=== PATIENT | male | born 1990 | race Caucasian/White ===

== ENCOUNTER 2024-09-19 08:56 | Emergency (ER) | payer OTHER, SELFPAY ==
[2024-09-19 08:59] VITALS: BP 148/87; PULSE 86; RESP 20; TEMP 36.8; O2SAT 98; BMI 47.8
[2024-09-19 09:04] VITALS: BP 148/86; PULSE 85; O2SAT 98
--- NOTE | 2024-09-19 09:23 | ECG_ITS ---
APPROVED REPORT Exam: Resting ECG HR:74 bpm ECG Measurements Heart Rate 74 AXES OR 161 P 39 QRSd 99 QRS 24 QT 414 T 24 QTc 441 Conclusion SINUS RHYTHM NORMAL ECG Electronically signed by : BENJAMIN CASTILLO, 09/19/2024 16:08:05
[2024-09-19 09:33] VITALS: BP 153/94; PULSE 88; O2SAT 99
--- NOTE | 2024-09-19 09:36 | ED_ITS ---
Discharge Plan Disposition Patient Disposition: Home, Self-Care Condition: Good Prescriptions Prescriptions: New ondansetron 4 mg tablet,disintegrating 4 mg PO Q8H PRN (Reason: nausea and vomiting) 4 Days Qty: 12 0RF Referrals Follow up/Referrals: Provider,Referral, [Primary Care Provider] - See instructions Activity Restrictions/Add. Instructions Additional Instructions/Restrictions: You were evaluated in the emergency department today. You were found to have a mass or fluid collection on your right flank, which radiology believes is likely a hematoma. Follow-up with your primary care provider very closely to make sure that this resolves. Please take Tylenol and ibuprofen at home as needed for pain. Avoid using Tylenol while drinking alcohol, as both can be very hard on your liver. Clinical Impressions Clinical Impression: Nausea & vomiting, Alcohol abuse, Hematoma of right flank Stand Alone Forms Stand Alone Forms: Work/School Release Instructions Patient Instructions: DI for Nausea -- Adult Print Language Print Language: Icelandic Discharge ED Provider: Polina Mosqueda General Adult HPI General Chief complaint: Nausea/Vomiting/Diarrhea Stated complaint: nausea, dizziness, dehydrated, Time Seen by Provider: 09/19/24 09:08 Mode of Arrival: Family Vehicle Source of Information: Patient and Significant Other Limitations: No Limitations Description of Symptoms (Recalled from ER Triage Doc. by RN): Pt c/o nausea, vomiting, dizziness, chest pressure, and R back pain after drinking too much last night. States he typically drinking 1 pint- a fifth of bourbon daily. He states is trying to cut back. Denies any abd pain. He had gastric sleeve last yr and takes protonix daily. States his symptoms began at 8am today. Denies any black or red emesis or stool. History of Present Illness HPI narrative: This patient is a 33-year-old male with a history of daily alcohol abuse, prior cholecystectomy, history of gastric sleeve surgery, and history of hypertension and GERD presenting to the emergency department for evaluation with concern for nausea, vomiting, lightheadedness, chest pressure, right-sided back pain. He states that he thinks he might of drank too much last night. He states that he typically drinks a pint to 1/5 of bourbon daily but is been trying to cut back. He states that he drank more than usual last night, but was fine when he woke up around 630 this morning. Suddenly, he started vomiting around 8 AM and feels like he is dehydrated. He notes has been having right sided back pain for a few days. He also has been having trouble having bowel movements and has had darker urine than normal. No fevers, chills, or other concerns noted. No hematemesis, melena, hematochezia. He reports compliance with his blood pressure and GERD medications. Related Data Previous Rx's ?Medication ?Instructions ?Recorded ondansetron 4 mg disintegrating 4 mg PO Q8H PRN nausea and 09/19/24 tablet vomiting 4 days #12 tabs Allergies Allergy/AdvReac Type Severity Reaction Status Date / Time vancomycin Allergy Intermediate itching & Verified 09/19/24 09:34 face edema [facility] Disclaimer: The information contained in this section may have been updated after the patient was seen, as this information can be updated by other users. Medical History Hypertension Surgical History H/O gastric sleeve Hx of cholecystectomy Social History Smoking Status: Current every day smoker alcohol intake: never current occupational status: employed Travel in the last 8 weeks: None ROS Obtained: Yes All systems reviewed & no additional complaints except as documented Physical Exam General General appearance: alert, in no apparent distress and obese Head Head exam: atraumatic and normocephalic Eye Eye exam: Present normal appearance, PERRL and EOMI ENT ENT exam: Present normal exam, normal oropharynx, mucous membranes moist and normal external ear exam Neck Neck exam: Present normal inspection, full ROM and trachea midline; Absent tenderness Chest Chest inspection: Present normal inspection and symmetric chest wall rise; Absent tenderness Respiratory Respiratory exam: Present normal lung sounds bilaterally; Absent respiratory distress, wheezes, stridor or accessory muscle use Cardiovascular Cardiovascular exam: Present regular rate and normal rhythm Abdominal Exam Abdominal exam: Present soft; Absent distention, tenderness or guarding Extremities Exam Extremities exam: Present normal inspection, full ROM and normal capillary refill; Absent tenderness or edema Back Exam Back exam: Present full ROM and CVA tenderness (R) Neurological Exam Neurological exam: Present alert, oriented X3, CN II-XII intact and normal gait; Absent motor sensory deficit Psychiatric Psychiatric exam: Present normal affect and normal mood Skin Skin exam: Present warm and dry Medical Decision Making Medical Records Medical records reviewed: Yes I reviewed the patient's medical records. Screening: Per USPSTF and CDC recommendations, given the prevalence of disease in our region, it is our hospital?s policy to screen for HIV and viral Hepatitis for all patients aged 18 and over and those with ongoing risk factors. [place] Inquiry Pt receiving controlled substance: No Vital Signs: 09/19/24 08:59 09/19/24 09:04 09/19/24 09:33 Temperature 98.3 F Temperature Source Oral Pulse Rate 85 88 Pulse Rate [Right] 86 Respiratory Rate 20 Blood Pressure 148/86 H 153/94 H Blood Pressure [Right Arm] 148/87 H Blood Pressure Mean Blood Pressure Mean [Right Arm] 107 Blood Pressure Source Blood Pressure Source [Right Arm] Automatic Cuff Blood Pressure Position 02 Sat by Pulse Oximetry 98 98 99 Oxygen Delivery Method Room Air Room Air Room Air 09/19/24 11:28 09/19/24 11:30 09/19/24 11:44 Temperature 98.3 F Temperature Source Oral Pulse Rate 84 Pulse Rate [Right] Respiratory Rate 18 Blood Pressure 157/95 H 160/89 H 160/89 H Blood Pressure [Right Arm] Blood Pressure Mean 106 101 Blood Pressure Mean [Right Arm] Blood Pressure Source Automatic Cuff Blood Pressure Source [Right Arm] Blood Pressure Position Sitting 02 Sat by Pulse Oximetry Oxygen Delivery Method Room Air Lab Data Lab results reviewed: Yes I reviewed the patient's lab results. Lab Results 09/19/24 09:10: WBC 4.3 L, RBC 4.87, Hgb 17.3, Hct 49.5, MCV 101.7 H, MCH 35.5 H , MCHC 34.9, RDW 14.9, Plt Count 250, MPV 7.4, Neut % (Auto) 56.8, Lymph % (Auto) 31.8, [place] % (Auto) 6.7, Eos % (Auto) 3.0, Baso % (Auto) 1.7, Neut # (Auto) 2.4, Lymph # (Auto) 1.4, [place] # (Auto) 0.3, Eos # (Auto) 0.1, Baso # (Auto) 0.1, PT 10.8, INR 0.96, APTT 27.2, Sodium 138, Potassium 3.8, Chloride 102, Carbon Dioxide 30, Anion Gap 9.8, BUN 7 L, Creatinine 0.80, Estimated Creat Clear 142, Estimated GFR 113, Est GFR ( Amer) 136, Glucose 82, Lactate 3.2 H, Calcium 8.9, Phosphorus 2.4 L, Magnesium 1.6, Total Bilirubin 1.0, AST 105 H, ALT 81 H, Alkaline Phosphatase 96, Troponin I < 0.01, Total Protein 6.7, Albumin 4.1, Globulin 2.6, Albumin/Globulin Ratio 1.6, Lipase 45, Plasma/Serum Alcohol 119 H 09/19/24 09:40: Urine Color Yellow, Urine Appearance Clear, Urine pH 6.0, Ur Specific [place] >= 1.030, Urine Protein Negative, Urine Glucose (UA) Negative, Urine Ketones 1+, Urine Blood Negative, Urine Nitrate Negative, Urine Bilirubin 2+ A, Urine Urobilinogen 1.0, Ur Leukocyte Esterase Negative, Urine RBC None, Urine WBC None, Ur Squamous Epith Cells Occasional, Urine Bacteria None 09/19/24 10:10: SARS-CoV-2 (PCR) Not detected, Influenza A Untype (PCR) Not detected, Influenza Type B (PCR) Not detected 09/19/24 09:10 09/19/24 09:10 Orders (Tests/Meds): ED MEDICATIONS Discontinued Medications Generic Name Dose Route Start Last Admin Trade Name Freq PRN Reason Stop Dose Admin Famotidine 20 mg 09/19/24 09:31 09/19/24 09:51 Famotidine 20mg/2ml Vial IV 09/19/24 09:32 20 mg ONCE ONE Administration Folic Acid 1 mg 09/20/24 09:00 Folic Acid 1mg Tablet PO 10/20/24 08:59 DAILY GODFREY Folic Acid 1 mg 09/19/24 09:30 09/19/24 09:53 Folic Acid 1mg Tablet PO 09/19/24 09:31 1 mg ONCE ONE Administration Multivitamins 10 ml/ Thiamine 1,015 mls @ 150 mls/hr 09/19/24 09:30 09/19/24 09:51 HCl 100 mg/ Magnesium Sulfate IV 09/19/24 16:15 150 mls/hr 2 gm/ Lactated Ringer's .[id number] GODFREY Administration Iopamidol 75 ml 09/19/24 10:23 09/19/24 10:24 Iopamidol-370 (76%);100ml Bottle IV 09/19/24 10:24 75 ml ONCE ONE Administration Ketorolac Tromethamine 15 mg 09/19/24 09:31 09/19/24 09:51 Ketorolac 30mg/Ml Vial IV 09/19/24 09:32 15 mg ONCE ONE Administration Multivitamins 1 each 09/19/24 10:00 09/19/24 10:04 Multivitamin Tablet PO 10/19/24 09:59 1 each 0900 GODFREY Administration Ondansetron HCl 4 mg 09/19/24 09:31 09/19/24 09:51 Ondansetron 4mg/2ml Vial IV 09/19/24 09:32 4 mg ONCE ONE Administration Sodium Chloride 8 ml 09/19/24 09:31 09/19/24 09:52 Sodium Chloride 0.9% 10ml Vial IV 10/19/24 09:30 8 ml NEEDED PRN Administration dilute pepcid Sodium Chloride 10 ml 09/19/24 10:23 09/19/24 10:24 Sodium Chloride 0.9% 10ml Syr (Rad Only) IV 09/19/24 10:24 10 ml ONCE ONE Administration Thiamine HCl 100 mg 09/20/24 09:00 09/19/24 09:52 Thiamine 100mg Tablet PO 09/22/24 09:01 100 mg DAILY GODFREY Administration ORDERS Category Date Time Status CT abdomen pelvis w con Stat Cat Scan 09/19/24 10:09 Completed Activated Partial Thrombo Time Routine Lab 09/19/24 09:10 Completed Complete Blood Count Auto Diff Routine Lab 09/19/24 09:10 Completed Comprehensive Metabolic Panel Routine Lab 09/19/24 09:10 Completed Ethyl Alcohol Stat Lab 09/19/24 09:10 Completed Lactic Acid Stat Lab 09/19/24 09:10 Completed Lipase Routine Lab 09/19/24 09:10 Completed Magnesium Routine Lab 09/19/24 09:10 Completed Phosphorous Routine Lab 09/19/24 09:10 Completed Prothrombin Time INR Routine Lab 09/19/24 09:10 Completed Rapid PCR Covid and Flu A/B Stat Lab 09/19/24 10:10 Completed Trop I [Troponin I] Stat Lab 09/19/24 09:10 Completed Troponin I Q3H Lab 09/19/24 12:45 Ordered Troponin I Q3H Lab 09/19/24 15:45 Ordered Urinalysis and Microscopic Routine Lab 09/19/24 09:40 Completed ECG Data Tracing #1: I reviewed this ECG and interpreted as documented below: Normal sinus rhythm with a ventricular rate of [address] changes concerning for ischemia. Normal intervals. ECG initial impression date: 09/19/24 ECG initial impression time: 09:25 Medical Decision Narrative: In summary, this patient is a 33-year-old male presenting to the Emergency Department for evaluation of right-sided back pain, nausea, vomiting, lightheadedness. Differential diagnoses considered include but are not limited to gastritis, pancreatitis, GERD, pyelonephritis, ureterolithiasis, alcoholic hepatitis, colitis, constipation. Ruling out the most morbid conditions drove assessment. It should be noted patient's history includes daily alcohol use, hypertension, and GERD which likely are not at goal therapy. This complicates all aspects of care by increasing patient's risk for morbidity. On exam, the patient is sitting upright in no acute distress. Abdominal exam is benign, the patient has right-sided CVA tenderness. He is not anxious or tremulous appearing and does not appear to be exhibiting signs of alcohol withdrawal. Workup included CBC, CMP, lipase, lactic acid, troponin, urinalysis, magnesium, phosphorus, INR, EKG. He was given a rally pack as well as thiamine/folate, Pepcid, Zofran, Toradol. I independently interpreted CT scan prior to the radiologist read and noted low collection in the right flank. Please see their read for final interpretation. They note concern for hematoma. Labs were obtained that demonstrated reassuring CBC without significant leukocytosis. He does have a mildly elevated lactic in the setting of vomiting and alcohol use, so I do not feel that this is specific to anything at this time. AST elevated greater than ALT consistent with alcohol abuse. Alcohol level is 119.. On reassessment, patient had good improvement after administration of above. He does note that he had a fall and hit his right flank on the back of a chair recently, so I feel this likely the cause of the hematoma. Based on clinical exam and history, I am not concerned for acute infection or abscess at this time. Ultimately, I feel the patient is appropriate for discharge home with close follow-up with primary care and strict return precautions. He was given instructions for supportive management. He was given prescription for Zofran given the vomiting. He was counseled on alcohol abuse.. Critical Care Critical Care Time Critical Care Time: No
[2024-09-19 09:44] LABS: Microscopic, Urine URINE MICROSCOPIC (MICROSCOPIC)
[2024-09-19 09:47] LABS: Albumin Level 4.1 g/dl (3.5-5.0); Basophils # 0.1 K/mm3 (0-0.2); Basophils % 1.7 % (0.1-2.0); Chloride 102 mmol/L (98-107); Eosinophils # 0.1 K/mm3 (0.0-0.4); Hematocrit 49.5 % (42.0-52.0); Hemoglobin 17.3 g/dL (14.1-18.0); Lymphocytes # 1.4 K/mm3 (0.7-4.5); Lymphocytes % 31.8 % (10-50); Mean Corpuscular HGB Conc 34.9 g/dL (31.8-35.4); Mean Corpuscular Hemoglobin 35.5 pg (27.0-31.2); Mean Corpuscular Volume 101.7 fl (80-94); Mean Platelet Volume 7.4 fl (7.4-10.4); Monocytes # 0.3 K/mm3 (0.1-1.0); Monocytes % 6.7 % (1.7-9.3); Neutrophils # 2.4 K/mm3 (1.8-7.8); Neutrophils % 56.8 % (37.0-80.0); Platelet Count 250 K/mm3 (142-424); Red Blood Count 4.87 M/mm3 (4.60-6.20); Red Cell Distribution Width 14.9 % (11.5-17.5); White Blood Count 4.3 K/mm3 (4.8-10.8)
[2024-09-19 09:48] LABS: Potassium 3.8 mmoL/L (3.5-5.1); Sodium 138 mmol/L (136-145)
[2024-09-19 09:50] LABS: Alanine Aminotransferase 81 U/L (12-78); Anion Gap 9.8 mEq/L (5-15); Aspartate Amino Transferase 105 U/L (17-59); Blood Urea Nitrogen 7 mg/dl (9-20); Carbon Dioxide 30 mmol/L (22.0-30.0); Creatinine Clearance Estimated 142 mL/min (50-200); Estimated Glomerular Filt Rate 113 ml/min (>60); Ethyl Alcohol 119 mg/dl (0-10); GFR (African American) 136 ML/MIN (>60)
[2024-09-19 09:51] LABS: Albumin/Globulin Ratio 1.6 (1.1-1.8); Alkaline Phosphatase 96 U/L (38-126); Calcium 8.9 mg/dl (8.4-10.2); Globulin 2.6 g/dL (1.3-3.2); Glucose 82 mg/dl (74-100); Lactic Acid 3.2 mmol/L (0.7-2.1); Lipase 45 U/L (23-300); Magnesium 1.6 mg/dl (1.6-2.3); Phosphorous 2.4 mg/dl (2.5-4.5); Total Protein,Serum 6.7 g/dl (6.3-8.2)
[2024-09-19] MEDS: MVI, ADULT NO.1 WITH VIT K 10 ML, THIAMINE HCL 100 MG, MAGNESIUM SULFATE 2 GM in LACTAT... 150 ML IV (09:51)
[2024-09-19] MEDS: ONDANSETRON 4MG/2ML VIAL 4 MG IV (09:51)
[2024-09-19] MEDS: FAMOTIDINE 20MG/2ML VIAL 20 MG IV (09:51)
[2024-09-19] MEDS: KETOROLAC 30MG/ML VIAL 15 MG IV (09:51)
[2024-09-19] MEDS: SODIUM CHLORIDE 0.9% 10ML VIAL 8 ML IV (09:52)
[2024-09-19] MEDS: THIAMINE 100MG TABLET 100 MG PO (09:52)
[2024-09-19 09:53] LABS: Activated Partial Thrombo Time 27.2 seconds (22.8-30.6); INR 0.96 (0.9-1.1); Prothrombin Time 10.8 seconds (10.1-12.5)
[2024-09-19] MEDS: FOLIC ACID 1MG TABLET 1 MG PO (09:53)
[2024-09-19 10:03] LABS: Troponin I < 0.01 ng/ml (0.00-0.034)
[2024-09-19] MEDS: MULTIVITAMIN TABLET 1 EACH PO (10:04)
--- NOTE | 2024-09-19 10:09 | CT_ITS ---
PROCEDURE INFORMATION: Exam: CT Abdomen And Pelvis With Contrast Exam date and time: 09/19/2024 10:18 AM Age: 33 years old Clinical indication: Nausea and vomiting; Abdominal pain; Flank; Right; Additional info: R flank pain, nausea, vomiting TECHNIQUE: Imaging protocol: Computed tomography of the abdomen and pelvis with contrast. Radiation optimization: All CT scans at this facility use at least one of these dose optimization techniques: automated exposure control; mA and/or kV adjustment per patient size (includes targeted exams where dose is matched to clinical indication); or iterative reconstruction. Contrast material: ISOVUE; Contrast volume: 75 ml; Contrast route: IV; COMPARISON: No relevant prior studies available. FINDINGS: Liver: Normal. No mass. Gallbladder and biliary ducts: Cholecystectomy Pancreas: Normal. No ductal dilation. Spleen: Splenomegaly 14 cm. Adrenal glands: Normal. No mass. Kidneys and ureters: Normal. No hydronephrosis. Stomach and bowel: Sutures in the stomach. No dilated bowel . Appendix: Normal appendix Intraperitoneal space: Unremarkable. No free air. No significant fluid collection. Vasculature: Unremarkable. No abdominal aortic aneurysm. Lymph nodes: Unremarkable. No enlarged lymph nodes. Urinary bladder: Unremarkable as visualized. Reproductive: Unremarkable as visualized. Bones/joints: Multiple lower thoracic compression fractures of unknown age Soft tissues: 9 x 3.5 cm mass in the subcutaneous fat in the right flank series 3, image 76.. Fifty-five Hounsfield units may represent a hematoma. IMPRESSION: 1. 9 x 3.5 cm mass in the subcutaneous fat in the right flank series 3, image 76.. Fifty-five Hounsfield units may represent a hematoma. 2. Splenomegaly 14 cm. 3. No dilated bowel .
[2024-09-19 10:16] LABS: Coronavirus 19, PCR Not Detected (NotDetected); Influenza A, PCR Not Detected (NotDetected); Influenza B, PCR Not Detected (NotDetected)
[2024-09-19] MEDS: IOPAMIDOL-370 (76%);100ML BOTTLE 75 ML IV (10:24)
[2024-09-19] MEDS: SODIUM CHLORIDE 0.9% 10ML SYR (RAD ONLY) 10 ML IV (10:24)
[2024-09-19 10:26] LABS: Appearance,Urine CLEAR (Clear); Blood, Urine Negative (Negative); Color,Urine YELLOW (Yellow); Glucose,Urine (UA) Negative (Negative); Ketones,Urine 1+ (Negative); Leukocyte Esterase,Urine Negative (Negative); Nitrate,Urine Negative (Negative); Protein,Urine Negative (Negative); Specific Gravity, Urine >= 1.030 (1.005-1.030)
[2024-09-19 10:55] LABS: Bilirubin,Urine 2+ (Negative)
[2024-09-19 11:14] LABS: Squamous Epithelial Cell,Urine Occasional #/hpf (0-5)
[2024-09-19 11:28] VITALS: BP 157/95
[2024-09-19 11:30] VITALS: BP 160/89
--- NOTE | 2024-09-19 11:42 | PC.NURSE ---
DR CASTILLO AT BEDSIDE TO REEVALUATE PT
[2024-09-19 11:44] VITALS: BP 160/89; PULSE 84; RESP 18; TEMP 36.8; O2SAT 99
[2024-09-19 13:34] LABS: Reflex Lactic Add Lactic Reflex
== END 2024-09-19 11:48 | disposition home or self-care (01) ==
PROVIDERS: Emergency Provider Emergency Medicine; PCP Nurse Practitioner Family
DX: F10.10 Alcohol abuse, uncomplicated (principal); S30.1XXA Contusion of abdominal wall, initial encounter; R11.2 Nausea with vomiting, unspecified; R42 Dizziness and giddiness; R07.89 Other chest pain; M54.9 Dorsalgia, unspecified
CPT/HCPCS: 74177; 80053; 80320; 81001; 83605; 83690; 83735; 84100; 84484; 85025; 85610; 85730; 87636; 93005; 96361; 96374; 96375; 99285; G0480; J1885; J2405; J3411; J7120; Q9967; S0028

== ENCOUNTER 2024-09-28 12:30 | Emergency (ER) | payer OTHER, SELFPAY ==
[2024-09-28 13:58] VITALS: BP 0/0; PULSE 0; RESP 0; TEMP -17.7; TEMP 0
== END 2024-09-28 13:58 | disposition left against medical advice (07) ==
LOC: UTC 12:32
PROVIDERS: Emergency Provider Nurse Practitioner Family; PCP Nurse Practitioner Family
DX: Z53.21 Procedure and treatment not carried out due to patient leaving prior to being seen by health care provider (principal)

== ENCOUNTER 2024-11-17 13:58 | Emergency (ER) | payer OTHER, SELFPAY ==
[2024-11-17 13:59] VITALS: BP 139/84; PULSE 80; RESP 20; TEMP 36.7; O2SAT 97; BMI 47.4
--- NOTE | 2024-11-17 14:08 | HMH.EDGENADL ---
Discharge Plan Disposition Patient Disposition: Home, Self-Care Condition: Good Prescriptions Prescriptions: New ondansetron 4 mg tablet,disintegrating 4 mg PO QID PRN (Reason: nausea and vomiting) Qty: 10 0RF No Action pantoprazole 40 mg tablet,delayed release (DR/EC) 40 mg PO DAILY lisinopril 10 mg tablet 10 mg PO DAILY Referrals Follow up/Referrals: Yonatan Dutton II, MD [Staff Physician] - See instructions Mily Valentino APRN [Primary Care Provider] - See instructions Activity Restrictions/Add. Instructions Additional Instructions/Restrictions: I have referred you to gastroenterology for evaluation of your stomach pain on an outpatient basis. If you have continued new or worsening signs or symptoms follow-up with your PCP return to the ER as needed. Continue taking your pantoprazole. Clinical Impressions Clinical Impression: Abdominal pain Qualifiers: Abdominal location: epigastric Qualified Code(s): R10.13 - Epigastric pain Print Language Print Language: Ukrainian Discharge ED Provider: Dennis Zamudio General Adult HPI <MARKUS Ruth - Last Filed: 11/17/24 17:42> General Chief complaint: GI Bleed Stated complaint: Stomach pain with nausea,blood in stool Time Seen by Provider: 11/17/24 14:08 History of Present Illness HPI narrative: Patient presents for evaluation of intractable nausea and dry heaves as well as dark stool. Patient reports that he had sudden onset of intractable nausea and dry heaves that began yesterday. He reports that he is retching and during 1 long protracted episode of dry heaves he felt a sharp pain in his epigastrium. He denies however cardiac chest pain shortness of breath fever chills hemoptysis hematochezia melena hematemesis hematuria. Patient however did report that his stools were dark but admits that he took an [id number]-[id number]-peibdia antidiarrheal because he was having loose stool. He denies any bright red blood per rectum. Related Data Home Medications ?Medication ?Instructions ?Recorded ?Confirmed lisinopril 10 mg tablet 10 mg PO DAILY 11/17/24 11/17/24 pantoprazole 40 mg tablet,delayed 40 mg PO DAILY 11/17/24 11/17/24 release Previous Rx's ?Medication ?Instructions ?Recorded ondansetron 4 mg disintegrating 4 mg PO QID PRN nausea and 11/17/24 tablet vomiting #10 tabs Allergies Allergy/AdvReac Type Severity Reaction Status Date / Time vancomycin Allergy Intermediate itching & Verified 09/19/24 09:34 face edema [facility] <MARKUS Ruth - Last Filed: 11/17/24 17:42> [facility] Disclaimer: The information contained in this section may have been updated after the patient was seen, as this information can be updated by other users. Medical History Hypertension Surgical History H/O gastric sleeve Hx of cholecystectomy Social History (Updated 09/19/24 @ 16:02 by Polina Mosqueda DO) Smoking Status: Current every day smoker alcohol intake: never current occupational status: employed Travel in the last 8 weeks: None Have you lived/traveled outside [place] in past 30 days?: No Contact w/someone who lives/traveled outside US past 30 days?: No Exposure to someone with infectious disease in past 14 days?: No Do you have a fever (greater than 100.4 F or 38 C)?: No Have you tested positive for COVID-19: No Exposed to someone with COVID-19 in past 14 days?: No Do you have a sore throat?: No Do you have a cough?: No Do you have any weakness?: No Do you have any diarrhea?: No Are you experiencing any unusual bleeding?: No Do you have any muscle aches/pain?: No Do you have any abdominal pain?: Yes Are you experiencing loss of taste or smell?: No <MARKUS Ruth - Last Filed: 11/17/24 17:42> ROS Obtained: Yes Systems reviewed as appropriate & no additional complaints except as documented Physical Exam <MARKUS Ruth - Last Filed: 11/17/24 17:42> General General appearance: alert and in no apparent distress Respiratory Respiratory exam: Present normal lung sounds bilaterally Cardiovascular Cardiovascular exam: Present regular rate Neurological Exam Neurological exam: Present alert and oriented X3 Medical Decision Making <MARKUS Ruth - Last Filed: 11/17/24 17:42> Medical Records Medical records reviewed: Yes I reviewed the patient's medical records. Screening: Per USPSTF and CDC recommendations, given the prevalence of disease in our region, it is our hospital?s policy to screen for HIV and viral Hepatitis for all patients aged 18 and over and those with ongoing risk factors. [place] Inquiry Pt receiving controlled substance: No Vital Signs: 11/17/24 13:59 11/17/24 14:15 11/17/24 16:37 Temperature 98.0 F 98.1 F Temperature Source Oral Oral Pulse Rate 77 82 Pulse Rate [Radial] 80 Respiratory Rate 20 16 Blood Pressure 139/84 164/111 H Blood Pressure [Right Arm] 139/84 Blood Pressure Mean [Right Arm] 102 Blood Pressure Source Automatic Cuff Blood Pressure Source [Right Arm] Automatic Cuff Blood Pressure Position Sitting 02 Sat by Pulse Oximetry 97 97 Oxygen Delivery Method Room Air Room Air Room Air Lab Data Lab results reviewed: Yes I reviewed the patient's lab results. Lab Results 11/17/24 14:12: WBC 8.1, RBC 4.99, Hgb 17.0, Hct 47.4, MCV 95.0 H, MCH 34.1 H, MCHC 35.9 H, RDW 12.0, Plt Count 238, MPV 10.0, Neut % (Auto) 80.9 H, Lymph % (Auto) 12.3, [place] % (Auto) 5.6, Eos % (Auto) 0.5, Baso % (Auto) 0.6, Neut # (Auto) 6.5, Lymph # (Auto) 1.0, [place] # (Auto) 0.5, Eos # (Auto) 0.0, Baso # (Auto) 0.1, PT 10.4, INR 0.94, Sodium 136, Potassium 3.5, Chloride 98, Carbon Dioxide 28, Anion Gap 13.5, BUN 6 L, Creatinine 0.70, Estimated Creat Clear 161, Estimated GFR 131, Est GFR ( Amer) 158, Glucose 116 H, Calcium 9.1, Total Bilirubin 1.6 H, AST 75 H, ALT 95 H, Alkaline Phosphatase 121, Total Protein 7.5, Albumin 4.5, Globulin 3.0, Albumin/Globulin Ratio 1.5, Lipase 32, HCV Ab JUMA w/Rflx PCR Qn Negative, HIV Ag/Ab Combo Qual Negative 11/17/24 14:50: Stool Occult Blood Negative 11/17/24 14:12 11/17/24 14:12 Orders (Tests/Meds): ED MEDICATIONS Discontinued Medications Generic Name Dose Route Start Last Admin Trade Name Alice PRN Reason Stop Dose Admin Acetaminophen 1,000 mg 11/17/24 14:38 11/17/24 14:54 Acetaminophen 1,000mg/100ml Vial IV 11/17/24 14:39 1,000 mg ONCE ONE Administration Belladonna Alkaloids 60 ml 11/17/24 14:39 11/17/24 14:53 Belladonna Alkaloids 60 Ml Ml PO 11/17/24 14:40 60 ml ONCE ONE Administration Iopamidol 75 ml 11/17/24 15:09 11/17/24 15:11 Iopamidol-370 (76%);100ml Bottle IV 11/17/24 15:10 75 ml ONCE ONE Administration Ondansetron HCl 4 mg 11/17/24 14:38 11/17/24 14:54 Ondansetron 4mg/2ml Vial IV 11/17/24 14:39 4 mg ONCE ONE Administration Sodium Chloride 10 ml 11/17/24 15:09 11/17/24 15:11 Sodium Chloride 0.9% 10ml Syr (Rad Only) IV 11/17/24 15:10 10 ml ONCE ONE Administration ORDERS Category Date Time Status CT abdomen pelvis w con Stat Cat Scan 11/17/24 14:38 Completed CBC w/Auto Diff [Complete Blood Count Auto Diff] Stat Lab 11/17/24 14:12 Completed CMP [Comprehensive Metabolic Panel] Stat Lab 11/17/24 14:12 Completed HIV Combo Stat Lab 11/17/24 14:12 Completed Hepatitis C Ab Qual. W/ RFX Stat Lab 11/17/24 14:12 Completed INR [Prothrombin Time INR] Stat Lab 11/17/24 14:12 Completed Lipase Stat Lab 11/17/24 14:12 Completed Occult Blood,Stool Stat Lab 11/17/24 14:50 Completed Medical Decision Narrative: In summary patient is a 34-year-old male who presents to the emergency department for evaluation of epigastric abdominal pain intractable nausea vomiting and dark stool. Patient is hemodynamically stable with a blood pressure 139/84 pulse 80 respiratory rate 20 satting at 97% on room air normal sinus rhythm on the bedside monitor upon arrival, afebrile at 98. Physical exam is remarkable for no actual epigastric tenderness on palpation, abdomen is soft without rebound or guarding or rigidity with normal bowel sounds nontender, breath sounds are clear and equal bilaterally to the bases without adventitious sounds, heart sounds are normal. Differential diagnosis includes gastroenteritis versus upper GI bleed versus gastritis versus ulcer versus possible Bela-Deleon tear etc. Initial workup will be conducted with hematologic labs CT scan abdomen pelvis with contrast. Initial interventions include crystalloid bolus Tylenol Zofran GI cocktail continuous cardiac monitoring pulse oximetry. Initial workup reviewed by me and his hematologic labs are nonactionable with a normal white count normal H&H normal INR bilirubin of 1.6 AST of 75 ALT of 95 and my informal interpretation of CT scan of the pelvis shows no acute abnormalities prior to radiology read. Upon repeat evaluation patient had resolution of his nausea and abdominal pain after initial intervention. I had interactive discussion regarding his transaminitis. Patient did not inform me that he is just gotten out of rehab but prior to discharge she received a injection of medication to help him stop drinking and stay sober. Patient was not told what would happen if he had any alcohol which patient admits that he drank a pint of liquor yesterday. Given this patient likely has the expected reaction of intractable nausea vomiting in the setting of drinking alcohol with a long-acting deterrent. I then had interactive discussion the patient regarding what he could expect and what the benefits and side effects of medication that he received as well as if he continued to consume alcohol. Patient verbalized understanding and agreement. Thus patient is appropriate for discharge with recommendations to continue his pantoprazole, a prescription for Zofran sent to his pharmacy with instructions that it would likely not and help should he continue drinking as a medication that he received his long-acting. I will refer the patient to GI for further evaluation of his GI systems as he does have a history of GERD as well as a transaminitis. <Kai Myers MD - Last Filed: 11/19/24 17:46> Vital Signs: 11/17/24 13:59 11/17/24 14:15 11/17/24 16:37 Temperature 98.0 F 98.1 F Temperature Source Oral Oral Pulse Rate 77 82 Pulse Rate [Radial] 80 Respiratory Rate 20 16 Blood Pressure 139/84 164/111 H Blood Pressure [Right Arm] 139/84 Blood Pressure Mean [Right Arm] 102 Blood Pressure Source Automatic Cuff Blood Pressure Source [Right Arm] Automatic Cuff Blood Pressure Position Sitting 02 Sat by Pulse Oximetry 97 97 Oxygen Delivery Method Room Air Room Air Room Air Lab Data Lab Results 11/17/24 14:12: WBC 8.1, RBC 4.99, Hgb 17.0, Hct 47.4, MCV 95.0 H, MCH 34.1 H, MCHC 35.9 H, RDW 12.0, Plt Count 238, MPV 10.0, Neut % (Auto) 80.9 H, Lymph % (Auto) 12.3, [place] % (Auto) 5.6, Eos % (Auto) 0.5, Baso % (Auto) 0.6, Neut # (Auto) 6.5, Lymph # (Auto) 1.0, [place] # (Auto) 0.5, Eos # (Auto) 0.0, Baso # (Auto) 0.1, PT 10.4, INR 0.94, Sodium 136, Potassium 3.5, Chloride 98, Carbon Dioxide 28, Anion Gap 13.5, BUN 6 L, Creatinine 0.70, Estimated Creat Clear 161, Estimated GFR 131, Est GFR ( Amer) 158, Glucose 116 H, Calcium 9.1, Total Bilirubin 1.6 H, AST 75 H, ALT 95 H, Alkaline Phosphatase 121, Total Protein 7.5, Albumin 4.5, Globulin 3.0, Albumin/Globulin Ratio 1.5, Lipase 32, HCV Ab JUMA w/Rflx PCR Qn Negative, HIV Ag/Ab Combo Qual Negative 11/17/24 14:50: Stool Occult Blood Negative Orders (Tests/Meds): ED MEDICATIONS Discontinued Medications Generic Name Dose Route Start Last Admin Trade Name Alice PRN Reason Stop Dose Admin Acetaminophen 1,000 mg 11/17/24 14:38 11/17/24 14:54 Acetaminophen 1,000mg/100ml Vial IV 11/17/24 14:39 1,000 mg ONCE ONE Administration Belladonna Alkaloids 60 ml 11/17/24 14:39 11/17/24 14:53 Belladonna Alkaloids 60 Ml Ml PO 11/17/24 14:40 60 ml ONCE ONE Administration Iopamidol 75 ml 11/17/24 15:09 11/17/24 15:11 Iopamidol-370 (76%);100ml Bottle IV 11/17/24 15:10 75 ml ONCE ONE Administration Ondansetron HCl 4 mg 11/17/24 14:38 11/17/24 14:54 Ondansetron 4mg/2ml Vial IV 11/17/24 14:39 4 mg ONCE ONE Administration Sodium Chloride 10 ml 11/17/24 15:09 11/17/24 15:11 Sodium Chloride 0.9% 10ml Syr (Rad Only) IV 11/17/24 15:10 10 ml ONCE ONE Administration ORDERS Category Date Time Status CT abdomen pelvis w con Stat Cat Scan 11/17/24 14:38 Completed CBC w/Auto Diff [Complete Blood Count Auto Diff] Stat Lab 11/17/24 14:12 Completed CMP [Comprehensive Metabolic Panel] Stat Lab 11/17/24 14:12 Completed HIV Combo Stat Lab 11/17/24 14:12 Completed Hepatitis C Ab Qual. W/ RFX Stat Lab 11/17/24 14:12 Completed INR [Prothrombin Time INR] Stat Lab 11/17/24 14:12 Completed Lipase Stat Lab 11/17/24 14:12 Completed Occult Blood,Stool Stat Lab 11/17/24 14:50 Completed Medical Decision Narrative: In summary patient is a 34-year-old male who presents to the emergency department for evaluation of epigastric abdominal pain intractable nausea vomiting and dark stool. Patient is hemodynamically stable with a blood pressure 139/84 pulse 80 respiratory rate 20 satting at 97% on room air normal sinus rhythm on the bedside monitor upon arrival, afebrile at 98. Physical exam is remarkable for no actual epigastric tenderness on palpation, abdomen is soft without rebound or guarding or rigidity with normal bowel sounds nontender, breath sounds are clear and equal bilaterally to the bases without adventitious sounds, heart sounds are normal. Differential diagnosis includes gastroenteritis versus upper GI bleed versus gastritis versus ulcer versus possible Bela-Deleon tear etc. Initial workup will be conducted with hematologic labs CT scan abdomen pelvis with contrast. Initial interventions include crystalloid bolus Tylenol Zofran GI cocktail continuous cardiac monitoring pulse oximetry. Initial workup reviewed by me and his hematologic labs are nonactionable with a normal white count normal H&H normal INR bilirubin of 1.6 AST of 75 ALT of 95 and my informal interpretation of CT scan of the pelvis shows no acute abnormalities prior to radiology read. Upon repeat evaluation patient had resolution of his nausea and abdominal pain after initial intervention. I had interactive discussion regarding his transaminitis. Patient did not inform me that he is just gotten out of rehab but prior to discharge she received a injection of medication to help him stop drinking and stay sober. Patient was not told what would happen if he had any alcohol which patient admits that he drank a pint of liquor yesterday. Given this patient likely has the expected reaction of intractable nausea vomiting in the setting of drinking alcohol with a long-acting deterrent. I then had interactive discussion the patient regarding what he could expect and what the benefits and side effects of medication that he received as well as if he continued to consume alcohol. Patient verbalized understanding and agreement. Thus patient is appropriate for discharge with recommendations to continue his pantoprazole, a prescription for Zofran sent to his pharmacy with instructions that it would likely not and help should he continue drinking as a medication that he received his long-acting. I will refer the patient to GI for further evaluation of his GI systems as he does have a history of GERD as well as a transaminitis. I was consulted by the MELISSA, and we discussed the complexity of the problems being addressed.I approved the treatment and management plan for this patient?s care in the Emergency Department, thus performing a substantive portion of the medical decision making.Signed, Kai Myers MD [facility] <MARKUS Ruth - Last Filed: 11/17/24 17:42> Critical Care Time Critical Care Time: No
[2024-11-17 14:15] VITALS: BP 139/84; PULSE 77; O2SAT 97
--- NOTE | 2024-11-17 14:38 | CT_ITS ---
FINAL REPORT TECHNIQUE: After the administration of intravenous contrast, axial images were obtained through the abdomen and pelvis by computed tomography. This study was performed with technique to keep radiation doses as low as reasonably achievable, (ALARA). Individualized dose reduction techniques using automated exposure control or adjustment of the MA and/or KV according to the patient's size were employed. CLINICAL HISTORY: Epigastric abdominal pain COMPARISON: 09/19/2024 FINDINGS: Abdomen: The lung bases are clear. The liver is fatty infiltrated. Gallbladder is absent. The spleen is unremarkable. The adrenals are normal. The pancreas is unremarkable. There is no CT evidence of pancreatitis. The kidneys enhance appropriately. The aorta is normal in caliber. There is no free fluid or adenopathy. Patient is status post gastric sleeve. Bowel is unremarkable. Pelvis: The appendix is normal. Prostate is unremarkable. Linear density in the right gluteal soft tissues in the area of previously seen mass is consistent with scarring from resolved hematoma. Urinary bladder is unremarkable. IMPRESSION: No findings to account for patient's symptoms. Reviewed, Interpreted and Dictated by Bette Nicholson MD Transcribed by Martha Carolina Authenticated and [facility]
[2024-11-17 14:45] LABS: Basophils # 0.1 K/mm3 (0-0.2); Basophils % 0.6 % (0.1-2.0); Eosinophils % 0.5 % (0.1-12.0); Hematocrit 47.4 % (42.0-52.0); Lymphocytes % 12.3 % (10-50); Mean Corpuscular HGB Conc 35.9 g/dL (31.8-35.4); Mean Corpuscular Hemoglobin 34.1 pg (27.0-31.2); Monocytes # 0.5 K/mm3 (0.1-1.0); Monocytes % 5.6 % (1.7-9.3); Neutrophils # 6.5 K/mm3 (1.8-7.8); Neutrophils % 80.9 % (37.0-80.0); Platelet Count 238 K/mm3 (142-424); Red Blood Count 4.99 M/mm3 (4.60-6.20); White Blood Count 8.1 K/mm3 (4.8-10.8)
[2024-11-17 14:49] LABS: Albumin Level 4.5 g/dl (3.5-5.0); Chloride 98 mmol/L (98-107); Potassium 3.5 mmoL/L (3.5-5.1); Sodium 136 mmol/L (136-145)
[2024-11-17 14:50] LABS: INR 0.94 (0.9-1.1); Prothrombin Time 10.4 seconds (9.2-12.1)
[2024-11-17 14:51] LABS: Lipase 32 U/L (23-300)
[2024-11-17 14:52] LABS: Alanine Aminotransferase 95 U/L (12-78); Albumin/Globulin Ratio 1.5 (1.1-1.8); Alkaline Phosphatase 121 U/L (38-126); Anion Gap 13.5 mEq/L (5-15); Aspartate Amino Transferase 75 U/L (17-59); Bilirubin,Total 1.6 mg/dl (0.2-1.3); Blood Urea Nitrogen 6 mg/dl (9-20); Calcium 9.1 mg/dl (8.4-10.2); Carbon Dioxide 28 mmol/L (22.0-30.0); Creatinine Clearance Estimated 161 mL/min (50-200); Estimated Glomerular Filt Rate 131 ml/min (>60); GFR (African American) 158 ML/MIN (>60); Glucose 116 mg/dl (74-100); Total Protein,Serum 7.5 g/dl (6.3-8.2)
[2024-11-17] MEDS: BELLADONNA ALKALOIDS 60 ML ML PO (14:53)
[2024-11-17] MEDS: ONDANSETRON 4MG/2ML VIAL 4 MG IV (14:54)
[2024-11-17] MEDS: ACETAMINOPHEN 1,000MG/100ML VIAL 1000 MG IV (14:54)
[2024-11-17 15:06] LABS: Occult Blood,Stool Negative (Negative)
[2024-11-17] MEDS: IOPAMIDOL-370 (76%);100ML BOTTLE 75 ML IV (15:11)
[2024-11-17] MEDS: SODIUM CHLORIDE 0.9% 10ML SYR (RAD ONLY) 10 ML IV (15:11)
[2024-11-17 15:26] LABS: HIV Combo NEGATIVE (Negative)
[2024-11-17 15:34] LABS: Hepatitis C Ab Qual. W/ RFX NEGATIVE (Negative)
--- NOTE | 2024-11-17 16:18 | PC.NURSE ---
Water given for PO challenge
[2024-11-17 16:37] VITALS: BP 164/111; PULSE 82; RESP 16; TEMP 36.7; O2SAT 98
== END 2024-11-17 16:38 | disposition home or self-care (01) ==
PROVIDERS: Emergency Medicine; Physician Assistant; Emergency Provider Emergency Medicine; PCP Nurse Practitioner Family
DX: R10.13 Epigastric pain (principal); R11.0 Nausea; R19.8 Other specified symptoms and signs involving the digestive system and abdomen; K92.1 Melena; Z72.0 Tobacco use
CPT/HCPCS: 74177; 80053; 82272; 83690; 85025; 85610; 86803; 87389; 96374; 96375; 99285; G0328; J0131; J2405; Q9967

== ENCOUNTER 2025-01-24 01:07 | Emergency (ER) | payer OTHER, SELFPAY ==
[2025-01-24] VITALS (11 sets, daily range): BP systolic 92–161; BP diastolic 39–102; PULSE 67–96; RESP 11–23; TEMP 36.6–36.7; O2SAT 91–99; BMI 48.8
--- NOTE | 2025-01-24 01:17 | ECG_ITS ---
APPROVED REPORT Exam: Resting ECG HR:87 bpm ECG Measurements Heart Rate 87 AXES WV 153 P 56 QRSd 102 QRS 38 QT 383 T 38 QTc 428 Conclusion SINUS RHYTHM NORMAL ECG Electronically signed by : HARSH THAKKAR, 01/24/2025 06:44:46
--- NOTE | 2025-01-24 01:18 | PC.NURSE ---
Report received from Candace BROWNE
[2025-01-24] MEDS: ASPIRIN 81MG CHEWABLE TABLET 324 MG PO (01:22)
[2025-01-24 01:31] LABS: Albumin Level 4.2 g/dl (3.5-5.0); Chloride 103 mmol/L (98-107); Potassium 3.9 mmoL/L (3.5-5.1); Sodium 142 mmol/L (136-145)
[2025-01-24 01:32] LABS: Basophils # 0.1 K/mm3 (0-0.2); Basophils % 0.8 % (0.1-2.0); Eosinophils # 0.3 Kmm3 (0.0-0.4); Eosinophils % 3.5 % (0.1-12.0); Hematocrit 45.4 % (42.0-52.0); Hemoglobin 15.8 g/dL (14.1-18.0); Lymphocytes # 3.3 K/mm3 (0.7-4.5); Mean Corpuscular HGB Conc 34.8 g/dL (31.8-35.4); Mean Corpuscular Hemoglobin 32.7 pg (27.0-31.2); Mean Platelet Volume 9.6 fl (7.4-10.4); Monocytes # 0.5 K/mm3 (0.1-1.0); Monocytes % 6.9 % (1.7-9.3); Neutrophils # 3.2 K/mm3 (1.8-7.8); Neutrophils % 43.7 % (37.0-80.0); Nucleated Red Blood Cells # 0 10^3/uL; Nucleated Red Blood Cells % 0 %; Platelet Count 234 K/mm3 (142-424); Red Blood Count 4.83 M/mm3 (4.60-6.20); Red Cell Distribution Width 12.8 % (11.5-17.5); Red Cell Distribution Width-SD 44.2 fL; White Blood Count 7.4 K/mm3 (4.8-10.8)
[2025-01-24 01:34] LABS: Alanine Aminotransferase 45 U/L (12-78); Albumin/Globulin Ratio 1.4 (1.1-1.8); Alkaline Phosphatase 96 U/L (38-126); Anion Gap 15.9 mEq/L (5-15); Aspartate Amino Transferase 62 U/L (17-59); Bilirubin,Total 0.7 mg/dl (0.2-1.3); Blood Urea Nitrogen 8 mg/dl (9-20); Calcium 8.8 mg/dl (8.4-10.2); Carbon Dioxide 27 mmol/L (22.0-30.0); Creatinine Clearance Estimated 126 mL/min (50-200); Estimated Glomerular Filt Rate 98 ml/min (>60); GFR (African American) 118 ML/MIN (>60); Globulin 2.9 g/dL (1.3-3.2); Glucose 98 mg/dl (74-100); Total Protein,Serum 7.1 g/dl (6.3-8.2)
[2025-01-24 01:44] LABS: NT Pro Brain Natriuretic Pep. 56.6 pg/mL (0-125)
[2025-01-24 01:48] LABS: Troponin I < 0.01 ng/ml (0.00-0.034)
[2025-01-24] MEDS: NITROGLYCERIN 0.4MG SL TABLET 0.4 MG SL (01:52)
--- NOTE | 2025-01-24 01:52 | PC.NURSE ---
Pt having chest tightness 7 on 1-10 scale Pt in sinus rhythm per continuous heart monitor. Pt given nitroglycerine.
--- NOTE | 2025-01-24 02:16 | PC.NURSE ---
Pt states tightness now a 4 on 10-16
[2025-01-24] MEDS: BELLADONNA ALKALOIDS 60 ML ML PO (02:40)
--- NOTE | 2025-01-24 03:36 | XR_ITS ---
PROCEDURE INFORMATION: Exam: XR Chest Exam date and time: 01/24/2025 3:51 AM Age: 34 years old Clinical indication: Pain; Chest pressure; Additional info: Crushing cp TECHNIQUE: Imaging protocol: Radiologic exam of the chest. Views: 2 views. COMPARISON: CT ABDOMEN PELVIS W CON 11/17/2024 3:06 PM FINDINGS: Lungs: Unremarkable. No consolidation. Pleural spaces: Unremarkable. No pleural effusion. No pneumothorax. Heart/Mediastinum: Unremarkable. No cardiomegaly. Bones/joints: Unremarkable. IMPRESSION: No acute findings.
--- NOTE | 2025-01-24 03:45 | PC.NURSE ---
repeat troponin drawn and sent to lab
--- NOTE | 2025-01-24 04:01 | PC.NURSE ---
Pt to xray via wheelchair
[2025-01-24 04:10] LABS: Troponin I < 0.01 ng/ml (0.00-0.034)
--- NOTE | 2025-01-24 04:42 | [facility]H.EDCP ---
Discharge Plan Disposition Patient Disposition: Home, Self-Care Condition: Good Prescriptions Prescriptions: No Action pantoprazole 40 mg tablet,delayed release (DR/EC) 40 mg PO DAILY lisinopril 10 mg tablet 10 mg PO DAILY ondansetron 4 mg tablet,disintegrating 4 mg PO QID PRN (Reason: nausea and vomiting) Qty: 10 0RF Referrals Follow up/Referrals: Anabella Brown APRN [Primary Care Provider] - See instructions Wilfredo Thomson MD [Staff Physician] - See instructions (morbidly obese presented w/ CP after ETOH use, ER workup reassuring and pain absent, needs close follow up and re-check) Activity Restrictions/Add. Instructions Additional Instructions/Restrictions: You were evaluated in the ER and believed to be appropriate for discharge at this time. Drink plenty of water. I recommend avoiding alcohol. Continue your home medications as previously prescribed. Call cardiology office and make an appointment for outpatient reevaluation. Also follow-up with your primary care doctor for reevaluation. Return to the ER with any new, worsening, or otherwise concerning symptoms Clinical Impressions Clinical Impression: Chest pain, Morbid obesity, Alcohol use Print Language Print Language: Maltese Discharge ED Provider: Destiny Diaz General Chief Complaint: Chest Pain Stated Complaint: chest pain Time Seen by Provider: 01/24/25 01:17 Mode of Arrival: Ambulatory Source of Information: Patient Description of Symptoms (Recalled from ER Triage Doc. by RN): pt reports he has been drinking bourbon all day adn tonight on his way home he began having severe left chest pressure. pain does not radiate History of Present Illness HPI narrative: 34-year-old male to the ER with chest pressure. Patient reports he was drinking all day and while driving home started having chest pressure. Symptoms started approximately 1 hour prior to arrival. He reports the pressure does not radiate. He denies shortness of breath, nausea, vomiting, numbness, tingling, weakness. He denies headache or dizziness. He denies recent illness, no congestion or cough. He has never had symptoms like this before. Patient reports he has a history of hypertension on daily lisinopril. He has not taken any medications for his symptoms. Related Data Home Medications ?Medication ?Instructions ?Recorded ?Confirmed lisinopril 10 mg tablet 10 mg PO DAILY 11/17/24 11/17/24 pantoprazole 40 mg tablet,delayed 40 mg PO DAILY 11/17/24 11/17/24 release Previous Rx's ?Medication ?Instructions ?Recorded ondansetron 4 mg disintegrating 4 mg PO QID PRN nausea and 11/17/24 tablet vomiting #10 tabs Allergies Allergy/AdvReac Type Severity Reaction Status Date / Time vancomycin Allergy Intermediate itching & Verified 09/19/24 09:34 face edema [facility] Disclaimer: The information contained in this section may have been updated after the patient was seen, as this information can be updated by other users. Medical History Hypertension Surgical History H/O gastric sleeve Hx of cholecystectomy Social History (Updated 09/19/24 @ 16:02 by Polina Mosqueda DO) Smoking Status: Current every day smoker alcohol intake: never current occupational status: employed Travel in the last 8 weeks: None Have you lived/traveled outside [place] in past 30 days?: No Contact w/someone who lives/traveled outside US past 30 days?: No Exposure to someone with infectious disease in past 14 days?: No Do you have a fever (greater than 100.4 F or 38 C)?: No Have you tested positive for COVID-19: No Exposed to someone with COVID-19 in past 14 days?: No Do you have a sore throat?: No Do you have a cough?: No Do you have any weakness?: No Do you have any diarrhea?: No Are you experiencing any unusual bleeding?: No Do you have any muscle aches/pain?: No Do you have any abdominal pain?: No Are you experiencing loss of taste or smell?: No ROS Obtained: Yes Systems reviewed as appropriate & no additional complaints except as documented Per HPI Physical Exam General General appearance: alert, in no apparent distress and obese Head Head exam: atraumatic and normocephalic Eye Eye exam: Present PERRL and EOMI ENT ENT exam: Present mucous membranes moist Neck Neck exam: Present normal inspection and full ROM Chest Chest inspection: Present symmetric chest wall rise; Absent tenderness Respiratory Respiratory exam: Present normal lung sounds bilaterally; Absent respiratory distress, wheezes or stridor Cardiovascular Cardiovascular exam: Present regular rate and normal rhythm Abdominal Exam Abdominal exam: Present soft; Absent distention or tenderness Extremities Exam Extremities exam: Present full ROM Neurological Exam Neurological exam: Present alert and oriented X3; Absent motor sensory deficit Psychiatric Psychiatric exam: Present normal affect and normal mood Skin Skin exam: Present warm and dry HEART Score HEART Score HEART Score assessment performed?: Yes History (anamnesis): Moderately suspicious ECG: Normal Age: <45 years Risk factors: 1-2 risk factors Troponin: </= normal limit HEART Score: 2 Critical Care Critical Care Time Critical Care Time: No Medical Decision Making Medical Records Medical records reviewed: Yes I reviewed the patient's medical records. Mynor Inquiry Pt receiving controlled substance: No Vital Signs Vital Signs: 01/24/25 01:16 01/24/25 01:49 01/24/25 01:52 Temperature 98.0 F Temperature Source Oral Pulse Rate 86 Pulse Rate [Right] 96 H Respiratory Rate 20 18 Blood Pressure 131/81 107/57 L Blood Pressure [Right Arm] 161/102 H Blood Pressure Mean 73 Blood Pressure Mean [Right Arm] 121 02 Sat by Pulse Oximetry 96 96 Oxygen Delivery Method Room Air Room Air 01/24/25 02:00 01/24/25 02:15 01/24/25 02:24 Temperature Temperature Source Pulse Rate 89 Pulse Rate [Right] Respiratory Rate 23 Blood Pressure 95/39 L 120/70 Blood Pressure [Right Arm] Blood Pressure Mean 57 82 Blood Pressure Mean [Right Arm] 02 Sat by Pulse Oximetry 94 L Oxygen Delivery Method 01/24/25 02:30 01/24/25 02:45 01/24/25 03:00 Temperature Temperature Source Pulse Rate 81 Pulse Rate [Right] Respiratory Rate 22 Blood Pressure 92/50 L 97/48 L Blood Pressure [Right Arm] Blood Pressure Mean 64 59 Blood Pressure Mean [Right Arm] 02 Sat by Pulse Oximetry 91 L Oxygen Delivery Method 01/24/25 03:00 01/24/25 03:30 01/24/25 04:34 Temperature 97.9 F Temperature Source Pulse Rate 73 78 67 Pulse Rate [Right] Respiratory Rate 21 16 11 L Blood Pressure 99/55 L 99/55 L Blood Pressure [Right Arm] Blood Pressure Mean Blood Pressure Mean [Right Arm] 02 Sat by Pulse Oximetry 91 L 96 Oxygen Delivery Method Room Air 01/24/25 04:34 Temperature Temperature Source Pulse Rate 67 Pulse Rate [Right] Respiratory Rate Blood Pressure Blood Pressure [Right Arm] Blood Pressure Mean Blood Pressure Mean [Right Arm] 02 Sat by Pulse Oximetry Oxygen Delivery Method Lab Data Labs: Lab Results 01/24/25 01:10: WBC 7.4, RBC 4.83, Hgb 15.8, Hct 45.4, MCV 94.0, MCH 32.7 H, MCHC 34.8, RDW 12.8, Plt Count 234, MPV 9.6, Neut % (Auto) 43.7, Lymph % (Auto) 45.0, [place] % (Auto) 6.9, Eos % (Auto) 3.5, Baso % (Auto) 0.8, Neut # (Auto) 3.2, Lymph # (Auto) 3.3, [place] # (Auto) 0.5, Eos # (Auto) 0.3, Baso # (Auto) 0.1, Sodium 142, Potassium 3.9, Chloride 103, Carbon Dioxide 27, Anion Gap 15.9 H, BUN 8 L, Creatinine 0.90, Estimated Creat Clear 126, Estimated GFR 98, Est GFR ( Amer) 118, Glucose 98, Calcium 8.8, Total Bilirubin 0.7, AST 62 H, ALT 45, Alkaline Phosphatase 96, Troponin I < 0.01, NT-Pro-B Natriuret Pep 56.6, Total Protein 7.1, Albumin 4.2, Globulin 2.9, Albumin/Globulin Ratio 1.4 01/24/25 03:45: Troponin I < 0.01 01/24/25 01:10 01/24/25 01:10 Response Orders (Tests/Meds): ED MEDICATIONS Discontinued Medications Generic Name Dose Route Start Last Admin Trade Name Freq PRN Reason Stop Dose Admin Aspirin 324 mg 01/24/25 01:17 01/24/25 01:22 Aspirin 81mg Chewable Tablet PO 01/24/25 01:18 324 mg ONCE ONE Administration Belladonna Alkaloids 60 ml 01/24/25 02:14 01/24/25 02:40 Belladonna Alkaloids 60 Ml Ml PO 01/24/25 02:15 60 ml ONCE ONE Administration Nitroglycerin 0.4 mg 01/24/25 01:17 01/24/25 01:52 Nitroglycerin 0.4mg Sl Tablet SL 01/25/25 01:17 0.4 mg Q5MINP PRN Administration Chest Pain ORDERS Category Date Time Status CXR 2 view (NOT portable) [XR chest 2V] Stat Exams 01/24/25 03:36 Completed Complete Blood Count Auto Diff Stat Lab 01/24/25 01:10 Completed Comprehensive Metabolic Panel Stat Lab 01/24/25 01:10 Completed NT Pro Brain Natriuretic Pep. Stat Lab 01/24/25 01:10 Completed Troponin I Q3H Lab 01/24/25 03:45 Completed Troponin I Q3H Lab 01/24/25 07:30 Ordered Troponin I Stat Lab 01/24/25 01:10 Completed MDM Narrative Medical Decision Narrative: In summary, this 34-year-old male with comorbidities described in the HPI which may not vehicle therapy presents to the emergency department today with chest pain. On initial evaluation patient is hemodynamically stable, afebrile, chest pain is not reproducible on exam, cardiopulmonary exam benign, patient is morbidly obese but otherwise does not have focal abnormalities on exam. Differential diagnosis includes but is not limited to alcohol use, esophageal spasm, ACS, I considered PE but patient is PERC negative, among others. Based on these concerns, I ordered serum labs, cardiac workup, chest x-ray. Patient received aspirin for treatment initially. He also received 1 dose of sublingual nitro. He then became borderline hypotensive so additional nitro was not administered. He only had slight relief of symptoms with nitro administration. Given his significant alcohol intake earlier, I do have higher suspicion for alcohol contributing to his symptoms including possible GI distress contributing to his pain. GI cocktail administered and he became asymptomatic. CBC with no leukocytosis or anemia, platelets normal, PT/INR normal, CMP nonactionable, initial troponin undetectably low less than 0.01. Patient was placed into ED observation at 0210 for serial troponins to rule out evolving PA and preclude unnecessary workup. Patient remained on the senior care manager and was frequently reassessed. Chest x-ray personally interpreted does not demonstrate acute intrathoracic abnormality, see radiology read for final interpretation. On reassessment patient continues to be stable and asymptomatic. Resting comfortably. He would like to go home. Repeat troponin also undetectably low less than 0.01. I believe patient is appropriate for discharge at this time. With his obesity and history of hypertension I recommended follow-up with cardiology and placed a referral to this effect. Patient was given instructions on symptomatic management, follow up instructions, and return precautions for the emergency department. Patient indicated understanding and was discharged in stable condition. Total time in ED observation: 2 hours 20 minutes
== END 2025-01-24 04:38 | disposition home or self-care (01) ==
PROVIDERS: Emergency Provider Emergency Medicine; PCP Nurse Practitioner
DX: R07.89 Other chest pain (principal); I10 Essential (primary) hypertension; E66.01 Morbid (severe) obesity due to excess calories; F10.90 Alcohol use, unspecified, uncomplicated
CPT/HCPCS: 71046; 80053; 83880; 84484; 85025; 93005; 99285

== ENCOUNTER 2025-01-27 20:30 | Inpatient (IN) | payer OTHER, SELFPAY ==
[2025-01-27 20:37] VITALS: BP 159/99; PULSE 76; RESP 18; TEMP 36.6; O2SAT 99; BMI 47.4
[2025-01-27 20:43] VITALS: BP 168/96; PULSE 60; RESP 20; O2SAT 95
--- NOTE | 2025-01-27 20:58 | HMH.EDGENADL ---
Discharge Plan Disposition Patient Disposition: Admitted Condition: Good Clinical Impressions Clinical Impression: Alcohol abuse, Alcohol withdrawal syndrome Discharge ED Provider: Niranjan Cool General Adult HPI General Chief complaint: Alcohol Stated complaint: vomiting,fever,body aches,tremors Time Seen by Provider: 01/27/25 20:33 Mode of Arrival: Ambulatory Source of Information: Patient Description of Symptoms (Recalled from ER Triage Doc. by RN): Pt presents for evaluation of alcohol withdrawl. Pt states his last drink was this 0930 today, a pint of bourbon. Pt states he has been drinking daily for 2-3 weeks, amount would vary. Pt went this morning for an injection of vivatrol to assist with his withdrawl. Since the injection he has been sick to his stomach and vomiting History of Present Illness HPI narrative: This is a 34-year-old male with a history of alcohol use disorder on naltrexone who presents with concern for alcohol withdrawal. States that he has been on a 3-week byrne drinking 1/5 of bourbon every day. States that his last drink was about 930 this morning, a pint of bourbon. States that he presented for his monthly naltrexone injection today and developed symptoms of withdrawal about 2 hours after. States that he has had nausea and vomiting as well as tremulousness and diaphoresis since then. States that he has been hospitalized for withdrawal in the past however never this bad. Denies any history of alcohol withdrawal seizures Related Data Home Medications ?Medication ?Instructions ?Recorded ?Confirmed lisinopril 10 mg tablet 10 mg PO DAILY 11/17/24 01/27/25 pantoprazole 40 mg tablet,delayed 40 mg PO DAILY 11/17/24 01/27/25 release methocarbamol 750 mg tablet 750 mg PO Q6 PRN Pain 01/28/25 01/28/25 Previous Rx's ?Medication ?Instructions ?Recorded ondansetron 4 mg disintegrating 4 mg PO QID PRN nausea and 11/17/24 tablet vomiting #10 tabs Allergies Allergy/AdvReac Type Severity Reaction Status Date / Time vancomycin Allergy Intermediate itching & Verified 01/27/25 23:19 face edema [facility] Disclaimer: The information contained in this section may have been updated after the patient was seen, as this information can be updated by other users. Medical History Hypertension Surgical History History of tonsillectomy H/O gastric sleeve Hx of cholecystectomy Family History (Updated 01/28/25 @ 00:00 by Cyndi Gotti RN) Other Family history of DVT Family history of myocardial infarction Social History (Updated 01/28/25 @ 00:01 by Cyndi Gotti RN) Smoking Status: Current every day smoker alcohol intake: current current occupational status: employed Travel in the last 8 weeks: None Have you lived/traveled outside [place] in past 30 days?: No Contact w/someone who lives/traveled outside US past 30 days?: No Exposure to someone with infectious disease in past 14 days?: No Do you have a fever (greater than 100.4 F or 38 C)?: No Have you tested positive for COVID-19: No Exposed to someone with COVID-19 in past 14 days?: No Do you have a sore throat?: No Do you have a cough?: No Do you have any weakness?: No Do you have any diarrhea?: No Are you experiencing any unusual bleeding?: No Do you have any muscle aches/pain?: No Do you have any abdominal pain?: No Are you experiencing loss of taste or smell?: No ROS Obtained: Yes All systems reviewed & no additional complaints except as documented Physical Exam General General appearance: alert and anxious Comment: Tremulous Head Head exam: atraumatic Eye Eye exam: Present normal appearance, PERRL and EOMI Neck Neck exam: Present normal inspection and full ROM Chest Chest inspection: Present symmetric chest wall rise Respiratory Respiratory exam: Present normal lung sounds bilaterally; Absent respiratory distress Cardiovascular Cardiovascular exam: Present normal rhythm and tachycardia Abdominal Exam Abdominal exam: Present soft; Absent distention Extremities Exam Extremities exam: Present normal inspection Neurological Exam Neurological exam: Present alert and oriented X3 Psychiatric Psychiatric exam: Present normal affect and normal mood Skin Skin exam: Present warm and dry Medical Decision Making Medical Records Medical records reviewed: Yes I reviewed the patient's medical records. Screening: Per USPSTF and CDC recommendations, given the prevalence of disease in our region, it is our hospital?s policy to screen for HIV and viral Hepatitis for all patients aged 18 and over and those with ongoing risk factors. MR Comment: Emergency department visit note from 01/24/2025 notable for presentation of chest pressure after drinking all day. Mynor Inquiry Pt receiving controlled substance: No Vital Signs: 01/27/25 20:37 01/27/25 20:43 01/27/25 23:00 Temperature 97.8 F 98.0 F Temperature Source Oral Oral Pulse Rate 60 80 Pulse Rate [Right] 76 Respiratory Rate 18 20 20 Blood Pressure 168/96 H 152/93 H Blood Pressure [Right Arm] 159/99 H Blood Pressure Mean [Right Arm] 119 Blood Pressure Source [Right Arm] Automatic Cuff Blood Pressure Position [Right Arm] Sitting 02 Sat by Pulse Oximetry 99 95 Oxygen Delivery Method Room Air Room Air Lab Data Lab Results 01/27/25 21:02: WBC 4.4 L, RBC 4.62, Hgb 15.4, Hct 42.5, MCV 92.0, MCH 33.3 H, MCHC 36.2 H, RDW 12.9, Plt Count 163 D, MPV 9.7, Neut % (Auto) 65.9, Lymph % (Auto) 23.7, [place] % (Auto) 7.2, Eos % (Auto) 2.3, Baso % (Auto) 0.7, Neut # (Auto) 2.9, Lymph # (Auto) 1.1, [place] # (Auto) 0.3, Eos # (Auto) 0.1, Baso # (Auto) 0.0, PT 10.8, INR 0.96, APTT 25.6, Sodium 137, Potassium 3.5, Chloride 101, Carbon Dioxide 25, Anion Gap 14.5, BUN 9, Creatinine 0.80, Estimated Creat Clear 141, Estimated GFR 112, Est GFR ( Amer) 136, Glucose 98, Calcium 9.0, Phosphorus 2.9, Magnesium 1.4 L, Total Bilirubin 1.1, AST 64 H, ALT 52, Alkaline Phosphatase 86, Total Protein 6.9, Albumin 4.1, Globulin 2.8, Albumin/Globulin Ratio 1.5, Plasma/Serum Alcohol 11 H 01/27/25 21:02 01/27/25 21:02 Orders (Tests/Meds): ED MEDICATIONS Generic Name Dose Route Start Last Admin Trade Name Freq PRN Reason Stop Dose Admin Acetaminophen 650 mg 01/27/25 22:26 Acetaminophen 325mg Tab PO 02/26/25 22:25 Q4HP PRN Fever or Mild Pain (1-3) Diazepam 5 mg 01/27/25 20:54 01/28/25 00:25 Diazepam 10mg/2ml Syringe IV 02/26/25 20:53 5 mg Q1HP PRN Administration CIWA Score 8-15 Diazepam 10 mg 01/27/25 20:54 Diazepam 10mg/2ml Syringe IV 02/26/25 20:53 Q1HP PRN CIWA >16 Diazepam 5 mg 01/27/25 20:54 Diazepam 5mg Tablet PO 02/26/25 20:53 Q6HP PRN CIWA 2-7 Enoxaparin Sodium 40 mg 01/28/25 09:00 Enoxaparin 40mg/0.4ml Syringe SUBCUT 02/27/25 08:59 DAILY GODFREY Folic Acid 1 mg 01/27/25 21:00 01/27/25 21:04 Folic Acid 1mg Tablet PO 02/26/25 20:59 1 mg DAILY GODFREY Administration Multivitamins 10 ml/ Thiamine 1,015 mls @ 125 mls/hr 01/27/25 20:55 01/27/25 21:02 HCl 100 mg/ Magnesium Sulfate IV 01/28/25 05:02 125 mls/hr 2 gm/ Lactated Ringer's DAILY ONE Administration Ketorolac Tromethamine 30 mg 01/27/25 22:26 01/28/25 00:38 Ketorolac 30mg/Ml Vial IV 02/01/25 22:25 30 mg Q6HP PRN Administration Moderate Pain (4-6) Magnesium Oxide 400 mg 01/27/25 22:28 01/27/25 22:50 Magnesium Oxide 400mg Tablet PO 01/27/25 22:29 400 mg ONCE ONE Administration Multivitamins 1 each 01/28/25 17:00 Multivitamin Tablet PO 02/27/25 16:59 1700 GODFREY Multivitamins 10 ml 01/28/25 09:00 Multiple Vitamin Inj 10ml Vial IV 02/27/25 08:59 DAILY GODFREY Nicotine 21 mg 01/27/25 22:26 Nicotine 21mg/24hr Patch TD 02/26/25 22:25 DAILYP PRN Nicotine Cravings Ondansetron HCl 4 mg 01/27/25 22:26 Ondansetron 4mg/2ml Vial IV 02/26/25 22:25 Q8HP PRN Nausea Thiamine HCl 100 mg 01/27/25 21:00 01/27/25 21:01 Thiamine 100mg Tablet PO 01/29/25 09:01 100 mg DAILY GODFREY Administration Discontinued Medications Generic Name Dose Route Start Last Admin Trade Name Jayceq PRN Reason Stop Dose Admin Phenobarbital Sodium 130 mg 01/27/25 20:54 01/27/25 21:03 Phenobarbital Sod 65mg/Ml Inj IV 01/27/25 20:55 130 mg ONCE ONE Administration ORDERS Category Date Time Status Activated Partial Thrombo Time Routine Lab 01/27/25 21:02 Completed Basic Metabolic Panel AMLAB Lab 01/28/25 06:00 Ordered Basic Metabolic Panel AMLAB Lab 01/29/25 06:00 Ordered Basic Metabolic Panel AMLAB Lab 01/30/25 06:00 Ordered Basic Metabolic Panel AMLAB Lab 01/31/25 06:00 Ordered Basic Metabolic Panel AMLAB Lab 02/01/25 06:00 Ordered Complete Blood Count Auto Diff AMLAB Lab 01/28/25 06:00 Ordered Complete Blood Count Auto Diff AMLAB Lab 01/29/25 06:00 Ordered Complete Blood Count Auto Diff AMLAB Lab 01/30/25 06:00 Ordered Complete Blood Count Auto Diff AMLAB Lab 01/31/25 06:00 Ordered Complete Blood Count Auto Diff AMLAB Lab 02/01/25 06:00 Ordered Complete Blood Count Auto Diff Routine Lab 01/27/25 21:02 Completed Comprehensive Metabolic Panel Routine Lab 01/27/25 21:02 Completed Drug Screen,Urine Routine Lab 01/28/25 00:29 Received Ethyl Alcohol Stat Lab 01/27/25 21:02 Completed Magnesium AMLAB Lab 01/28/25 06:00 Ordered Magnesium AMLAB Lab 01/29/25 06:00 Ordered Magnesium AMLAB Lab 01/30/25 06:00 Ordered Magnesium Routine Lab 01/27/25 21:02 Completed Phosphorous Routine Lab 01/27/25 21:02 Completed Prothrombin Time INR Routine Lab 01/27/25 21:02 Completed Medical Decision Narrative: In summary, this 34-year-old male with a past medical history of alcohol use disorder presents to the emergency department today with concern for alcohol withdrawal. On initial evaluation patient is tremulous, anxious, hemodynamically stable and nontoxic-appearing. CIWA score of 20. Differential diagnosis includes but is not limited to alcohol withdrawal, alcohol intoxication, electrolyte abnormality. Based on these concerns, I ordered CBC, CMP, PT/INR, alcohol level, UDS, CIWA score protocol. ECG personally interpreted as noted above. Patient received phenobarbital load and subsequent CIWA score diazepam treatment protocol. Labs personally reviewed demonstrate leukopenia with a white blood cell count of 4.4, INR of 0.96, unremarkable CMP, mildly detectable alcohol at 11. On reassessment patient CIWA score of 9. Administered diazepam. Consulted hospital medicine and patient ultimately admitted to stepdown unit for alcohol withdrawal. Critical Care Critical Care Time Critical Care Time: Yes Attestation: On 01/27/25, the high probability of a clinically significant, sudden or life threatening deterioration of the following system(s) required my full and direct attention, intervention and personal management. The time I documented below is in addition to time spent performing reported procedures but includes the following listed in this critical care notation. Total Time Total Critical Care Time: 45
[2025-01-27] MEDS: THIAMINE 100MG TABLET 100 MG PO (21:01)
[2025-01-27] MEDS: MVI, ADULT NO.1 WITH VIT K 10 ML, THIAMINE HCL 100 MG, MAGNESIUM SULFATE 2 GM in LACTAT... 125 ML IV (21:02)
[2025-01-27] MEDS: PHENobarbital SOD 65MG/ML INJ 130 MG IV (21:03)
[2025-01-27] MEDS: FOLIC ACID 1MG TABLET 1 MG PO (21:04)
[2025-01-27 21:11] LABS: Basophils % 0.7 % (0.1-2.0); Eosinophils # 0.1 Kmm3 (0.0-0.4); Eosinophils % 2.3 % (0.1-12.0); Hematocrit 42.5 % (42.0-52.0); Hemoglobin 15.4 g/dL (14.1-18.0); Lymphocytes # 1.1 K/mm3 (0.7-4.5); Lymphocytes % 23.7 % (10-50); Mean Corpuscular HGB Conc 36.2 g/dL (31.8-35.4); Mean Corpuscular Hemoglobin 33.3 pg (27.0-31.2); Mean Platelet Volume 9.7 fl (7.4-10.4); Monocytes # 0.3 K/mm3 (0.1-1.0); Monocytes % 7.2 % (1.7-9.3); Neutrophils # 2.9 K/mm3 (1.8-7.8); Neutrophils % 65.9 % (37.0-80.0); Nucleated Red Blood Cells # 0 10^3/uL; Nucleated Red Blood Cells % 0 %; Platelet Count 163 K/mm3 (142-424); Red Blood Count 4.62 M/mm3 (4.60-6.20); Red Cell Distribution Width 12.9 % (11.5-17.5); White Blood Count 4.4 K/mm3 (4.8-10.8)
[2025-01-27 21:28] LABS: Alanine Aminotransferase 52 U/L (12-78); Albumin Level 4.1 g/dl (3.5-5.0); Albumin/Globulin Ratio 1.5 (1.1-1.8); Alkaline Phosphatase 86 U/L (38-126); Anion Gap 14.5 mEq/L (5-15); Aspartate Amino Transferase 64 U/L (17-59); Bilirubin,Total 1.1 mg/dl (0.2-1.3); Blood Urea Nitrogen 9 mg/dl (9-20); Carbon Dioxide 25 mmol/L (22.0-30.0); Chloride 101 mmol/L (98-107); Creatinine Clearance Estimated 141 mL/min (50-200); Estimated Glomerular Filt Rate 112 ml/min (>60); GFR (African American) 136 ML/MIN (>60); Globulin 2.8 g/dL (1.3-3.2); Glucose 98 mg/dl (74-100); Magnesium 1.4 mg/dl (1.6-2.3); Phosphorous 2.9 mg/dl (2.5-4.5); Potassium 3.5 mmoL/L (3.5-5.1); Sodium 137 mmol/L (136-145); Total Protein,Serum 6.9 g/dl (6.3-8.2)
[2025-01-27 21:34] LABS: Activated Partial Thrombo Time 25.6 seconds (22.8-30.6); INR 0.96 (0.9-1.1); Prothrombin Time 10.8 seconds (10.1-12.5)
[2025-01-27 21:36] LABS: Ethyl Alcohol 11 mg/dl (0-10)
[2025-01-27] MEDS: diazePAM 10MG/2ML SYRINGE 5 MG IV (22:00)
--- NOTE | 2025-01-27 22:30 | P.HP_ITS ---
<Statement entered by Sd Bravo MD - 01/28/25 19:28> Rounded on patient after nurse practitioner. Personally examined and interviewed patient. Agree with exam findings and care plan as documented. History of Present Illness *Admission Date: 01/27/25 *Reason for visit:: Alcohol withdrawal *History of present illness: This is a 34-year-old male who has a past medical history significant for alcoholic abuse and hypertension who presents with a chief complaint of being sick to his stomach and having vomiting. Due to the patient's symptoms, he presented to the emergency room for evaluation. While in the emergency room, patient was treated for alcohol withdrawal with phenobarbital, he was given a multivitamin bag of IV hydration, and the case was discussed with medicine because patient had initial CIWA score of 20 which had improved to 8 once he received phenobarbital, so we were asked to admit patient for further management for alcohol withdrawal. As a result, patient has been admitted for further management. During my evaluation of the patient, patient states he has been drinking at least 1/5 of vodka over the past 2-3 weeks. Patient voices his last drink was earlier today at 0900 hrs. Patient has known alcoholism and has been treated on an outpatient basis for withdrawal and alcohol cessation. He presented to an outside facility for his monthly Vivitrol injection. Postinjection, patient had the a forementioned symptomology with nausea vomiting and being sick to his stomach. Currently, patient denies any tremors, palpitations, lightheadedness, dizziness, shakiness, chest pain, shortness of breath, dyspnea, nausea, vo miting, or diarrhea. Additional pertinent values obtained include a white blood cell count of 4.4, magnesium of 0.4, AST of 64, and an alcohol level of 11. [facility] Disclaimer: The information contained in this section may have been updated after the patient was seen, as this information can be updated by other users. Medical History Hypertension Surgical History H/O gastric sleeve Hx of cholecystectomy Social History (Updated 09/19/24 @ 16:02 by Polina Mosqueda DO) Smoking Status: Current every day smoker alcohol intake: never current occupational status: employed Travel in the last 8 weeks: None Have you lived/traveled outside [place] in past 30 days?: No Contact w/someone who lives/traveled outside US past 30 days?: No Exposure to someone with infectious disease in past 14 days?: No Do you have a fever (greater than 100.4 F or 38 C)?: No Have you tested positive for COVID-19: No Exposed to someone with COVID-19 in past 14 days?: No Do you have a sore throat?: No Do you have a cough?: No Do you have any weakness?: No Do you have any diarrhea?: No Are you experiencing any unusual bleeding?: No Do you have any muscle aches/pain?: No Do you have any abdominal pain?: No Are you experiencing loss of taste or smell?: No Review of Systems Review of Systems Review of systems:: pertinent systems reviewed and negative unless documented below Constitutional Constitutional: Reports system reviewed and no additional complaints, except as documented Eyes Eyes: Reports system reviewed and no additional complaints, except as documented ENT Ears, Nose, Mouth, and Throat: Reports system reviewed and no additional complaints, except as documented *Cardiovascular Cardiovascular: Reports system reviewed and no additional complaints, except as documented *Respiratory Respiratory: Reports system reviewed and no additional complaints, except as documented *Gastrointestinal Gastrointestinal: Reports nausea *Genitourinary Genitourinary: Reports system reviewed and no additional complaints, except as documented *Musculoskeletal Musculoskeletal: Reports system reviewed and no additional complaints, except as documented Integumentary/Breasts Skin/Breast: Reports system reviewed and no additional complaints, except as documented *Neurologic Neurologic: Reports system reviewed and no additional complaints, except as documented Psychiatric Psychiatric: Reports system reviewed and no additional complaints, except as documented Endocrine Endocrine: Reports system reviewed and no additional complaints, except as documented Hematologic/Lymphatic Hematologic/Lymphatic: Reports system reviewed and no additional complaints, except as documented Allergic/Immunologic Allergic/Immunologic: Reports system reviewed and no additional complaints, except as documented Meds Home Medications and Allergies Home Medications ?Medication ?Instructions ?Recorded ?Confirmed ?Type lisinopril 10 mg tablet 10 mg PO DAILY 11/17/24 11/17/24 History ondansetron 4 mg disintegrating 4 mg PO QID PRN nausea and 11/17/24 Rx tablet vomiting #10 tabs pantoprazole 40 mg tablet,delayed 40 mg PO DAILY 11/17/24 11/17/24 History release New Prescriptions to Start Prescriptions: Allergies Allergy/AdvReac Type Severity Reaction Status Date / Time vancomycin Allergy Intermediate itching & Verified 09/19/24 09:34 face edema Exam Data for Last 24 hours Vital signs and Labs for Last 24 Hours: Temp Pulse Resp BP Pulse Ox O2 Del Method 97.8 F 60 20 168/96 H 95 Room Air 01/27/25 20:37 01/27/25 20:43 01/27/25 20:43 01/27/25 20:43 01/27/25 20:43 01/27/25 20:43 Laboratory Results - last 24 hr 01/27/25 21:02: WBC 4.4 L, RBC 4.62, Hgb 15.4, Hct 42.5, MCV 92.0, MCH 33.3 H, MCHC 36.2 H, RDW 12.9, Plt Count 163 D, MPV 9.7, Neut % (Auto) 65.9, Lymph % (Auto) 23.7, [place] % (Auto) 7.2, Eos % (Auto) 2.3, Baso % (Auto) 0.7, Neut # (Auto) 2.9, Lymph # (Auto) 1.1, [place] # (Auto) 0.3, Eos # (Auto) 0.1, Baso # (Auto) 0.0, PT 10.8, INR 0.96, APTT 25.6, Sodium 137, Potassium 3.5, Chloride 101, Carbon Dioxide 25, Anion Gap 14.5, BUN 9, Creatinine 0.80, Estimated Creat Clear 141, Estimated GFR 112, Est GFR ( Amer) 136, Glucose 98, Calcium 9.0, Phosphorus 2.9, Magnesium 1.4 L, Total Bilirubin 1.1, AST 64 H, ALT 52, Alkaline Phosphatase 86, Total Protein 6.9, Albumin 4.1, Globulin 2.8, Albumin/Globulin Ratio 1.5, Plasma/Serum Alcohol 11 H I & O for Last 24 hours: Intake & Output 01/24/25 01/25/25 01/26/25 01/27/25 23:59 23:59 23:59 23:59 Weight 154.221 kg Constitutional Constitutional: no acute distress and morbidly obese *Routine HEENT Exam Head: Present normocephalic and atraumatic Eye: Present EOMI and PERRL ENT: Present mucous membranes moist *Routine Neck Exam Neck: Present supple, full ROM and trachea midline *Routine Respiratory Exam Respiratory: Present CTA bilaterally, able to speak in complete sentences and symmetric chest movement *Routine Cardiovascular Exam Cardiovascular: Present RRR, Normal S1 and Normal S2 *Routine Abdominal Exam Abdominal: Present soft and normoactive bowel sounds *Routine Rectal Exam Rectal:: deferred *Routine Genitalia Exam Genitalia:: deferred *Routine Extremities Exam Extremities: Present full ROM, pulses intact and normal capillary refill Routine Back/Spine/Pelvis Exam Back/Spine: Present full ROM *Routine Skin Exam Skin: Present intact, dry, warm and normal turgor *Routine Neurological Exam Neurological: Present alert, oriented X3, CN II-XII intact, moving all extremities and normal speech Routine Psychiatric Exam Psychiatric: Present normal affect, normal thought process, cooperative, good insight and good judgment H&P: Result Impressions This is a 34-year-old male who has known history of alcoholism who presents after receiving his Vivitrol and postinjection experience nausea and vomiting. Patient wishes to abstain from alcohol and is requesting admission to help with withdrawal symptoms. Assessment and Plan *Assessment and plan (1) EtOH dependence: Status: Acute Qualifiers: Substance use status: unspecified alcohol-induced disorder Qualified Code(s): F10.29 - Alcohol dependence with unspecified alcohol-induced disorder Category: Medical Code(s): F10.20 - Alcohol dependence, uncomplicated (2) Hypomagnesemia: Status: Acute Category: Medical Code(s): E83.42 - Hypomagnesemia Plan Assessment: Alcohol withdrawal - After receiving phenobarbital, patient's symptoms improved - Will continue CIWA protocol with anoxiolytics - Hopefully within hopefully within the next 24 to 48 hours patient will not have any significant symptomology and we can discharge home safely -Will continue multivitamin bag of IV hydration Leukopenia - Most likely in the setting of EtOH abuse - No neutropenia Hypomagnesia - Magnesium was replaced with MVI in the emergency room - Will give an additional 40 mg of magnesium oxide x 1 - Will monitor magnesium daily Plan: Admit patient to the MedSurg unit on telemetry Will continue CIWA protocol Seizure precautions Diazepam protocol for withdrawal symptoms Will continue MVI daily Cardiac diet CBC/BMP/magnesium daily Full code I will discussed this case with attending physician Dr. Bravo and I look forward to more input
[2025-01-27] MEDS: MAGNESIUM OXIDE 400MG TABLET 400 MG PO (22:50)
[2025-01-27 23:00] VITALS: BP 152/93; PULSE 80; RESP 20; TEMP 36.7; O2SAT 98
[2025-01-27 23:19] VITALS: BP 146/91; PULSE 77; RESP 19; TEMP 36.9; O2SAT 98; BMI 53.1
[2025-01-28] MEDS: diazePAM 10MG/2ML SYRINGE 5 MG IV (00:25)
[2025-01-28] MEDS: KETOROLAC 30MG/ML VIAL 30 MG IV (00:38)
[2025-01-28 02:07] LABS: Benzodiazepines Screen,Urine Negative ng/ml (<200)
[2025-01-28 02:08] LABS: Cannabinoid Screen,Urine Negative ng/ml (<50)
[2025-01-28 02:09] LABS: Cocaine Screen,Urine Negative ng/ml (<300)
[2025-01-28 02:10] LABS: Methadone Screen,Urine Negative ng/ml (<300)
[2025-01-28 02:11] LABS: Opiate Screen,Urine Negative ng/ml (<300)
[2025-01-28 02:12] LABS: Phencyclidine Screen,Urine Negative ng/ml (<25)
[2025-01-28 02:14] LABS: Amphetamine/Metha Screen,Urine Negative ng/ml (<1000)
[2025-01-28 02:15] LABS: Barbiturates Screen,Urine Positive ng/ml (<200)
[2025-01-28] MEDS: diazePAM 5MG TABLET 5 MG PO (02:26)
[2025-01-28] MEDS: BELLADONNA ALKALOIDS 60 ML ML PO (02:27)
[2025-01-28] MEDS: ACETAMINOPHEN 325MG TAB 650 MG PO (03:33)
[2025-01-28 03:42] VITALS: BP 124/71; PULSE 65; RESP 20; TEMP 37.1; O2SAT 98
[2025-01-28 04:00] VITALS: PULSE 50; BMI 53.4
--- NOTE | 2025-01-28 04:40 | PC.NURSE ---
Pt. was admitted overnight for Alcohol withdrawl. Pt. has been drinking 1/5 of [place] daily for the past 2-3 weeks. Pt. goes to a clinic for Vivitrol(Naltrexone) injections once a month. Pt's last drink was 01/28/25 between 0900 am-0930 am. a couple hours after injection Pt. had abdominal pain nausea, and vomiting. Pt. presented to the ED. Initial CIWA score was 20. upon admission to the floor it was 10. . Pt. had a very bad headache, also c/o chronic bilateral hip and knee pain. Pt. medicated for chronic pain with Toradol IV, and with Valium for CIWA scores. Pt. sleeping off and on. Personal items and call hernandez in reach.
[2025-01-28 06:14] LABS: Basophils % 0.6 % (0.1-2.0); Eosinophils # 0.2 Kmm3 (0.0-0.4); Eosinophils % 4.9 % (0.1-12.0); Hematocrit 40.4 % (42.0-52.0); Hemoglobin 14.1 g/dL (14.1-18.0); Lymphocytes # 1.3 K/mm3 (0.7-4.5); Lymphocytes % 36.5 % (10-50); Mean Corpuscular HGB Conc 34.9 g/dL (31.8-35.4); Mean Corpuscular Volume 94.6 fl (80-94); Mean Platelet Volume 10.1 fl (7.4-10.4); Monocytes # 0.3 K/mm3 (0.1-1.0); Monocytes % 8.6 % (1.7-9.3); Neutrophils # 1.7 K/mm3 (1.8-7.8); Neutrophils % 49.1 % (37.0-80.0); Nucleated Red Blood Cells # 0 10^3/uL; Nucleated Red Blood Cells % 0 %; Platelet Count 127 K/mm3 (142-424); Red Blood Count 4.27 M/mm3 (4.60-6.20); Red Cell Distribution Width 12.9 % (11.5-17.5); Red Cell Distribution Width-SD 44.2 fL; White Blood Count 3.5 K/mm3 (4.8-10.8)
[2025-01-28 06:22] LABS: Chloride 101 mmol/L (98-107); Sodium 136 mmol/L (136-145)
[2025-01-28 06:25] LABS: Blood Urea Nitrogen 11 mg/dl (9-20); Creatinine Clearance Estimated 137 mL/min (50-200); Estimated Glomerular Filt Rate 112 ml/min (>60); GFR (African American) 136 ML/MIN (>60)
[2025-01-28 06:26] LABS: Anion Gap 5.6 mEq/L (5-15); Calcium 8.6 mg/dl (8.4-10.2); Carbon Dioxide 33 mmol/L (22.0-30.0); Glucose 96 mg/dl (74-100); Magnesium 1.8 mg/dl (1.6-2.3); Potassium 3.6 mmoL/L (3.5-5.1)
[2025-01-28 08:00] VITALS: BP 136/91; PULSE 60; PULSE 68; RESP 18; TEMP 36.9; O2SAT 97
[2025-01-28] MEDS: LISINOPRIL 10MG TABLET 10 MG PO (08:15)
[2025-01-28] MEDS: MVI, ADULT NO.1 WITH VIT K 10 ML, THIAMINE HCL 100 MG, MAGNESIUM SULFATE 2 GM in LACTAT... 125 ML IV (08:15)
[2025-01-28] MEDS: FOLIC ACID 1MG TABLET 1 MG PO (08:25)
[2025-01-28] MEDS: THIAMINE 100MG TABLET 100 MG PO (08:26)
--- NOTE | 2025-01-28 08:26 | HMH.PHAINT1 ---
Pharmacy Intervention Comments: HOME MEDICATION LIST VERIFIED USING LIST FROM OUTPATIENT PHARMACY AND PT INTERVIEW
--- NOTE | 2025-01-28 10:26 | SW/DCPLANNER ---
I spoke w/ this patient regarding resources once medically stable for discharge. Patient is currently established w/ [facility] and prefers to continue w/ their services. Patient stated that he did go to inpatient rehab in the past and is not currently interested in this option. I have provided this patient w/ [facility] Resource list including AA meeting locations and times. I will continue to follow up w/ patient until medically stable for discharge. Discharge date is unknown at this time. Peer Support has been consulted.
[2025-01-28 11:38] VITALS: BP 144/89; PULSE 65; RESP 18; TEMP 36.8; O2SAT 97
[2025-01-28 12:00] VITALS: PULSE 50
--- NOTE | 2025-01-28 14:44 | P.DS_ITS ---
General Admission date:: 01/27/25 Discharge date: 01/28/25 HPI HPI HPI: This is a 34-year-old male who has a past medical history significant for alcoholic abuse and hypertension who presents with a chief complaint of being sick to his stomach and having vomiting. Due to the patient's symptoms, he presented to the emergency room for evaluation. While in the emergency room, patient was treated for alcohol withdrawal with phenobarbital, he was given a multivitamin bag of IV hydration, and the case was discussed with medicine because patient had initial CIWA score of 20 which had improved to 8 once he received phenobarbital, so we were asked to admit patient for further management for alcohol withdrawal. As a result, patient has been admitted for further management. During my evaluation of the patient, patient states he has been drinking at least 1/5 of vodka over the past 2-3 weeks. Patient voices his last drink was earlier today at 0900 hrs. Patient has known alcoholism and has been treated on an outpatient basis for withdrawal and alcohol cessation. He presented to an outside facility for his monthly Vivitrol injection. Postinjection, patient had the a forementioned symptomology with nausea vomiting and being sick to his stomach. Currently, patient denies any tremors, palpitations, lightheadedness, dizziness, shakiness, chest pain, shortness of breath, dyspnea, nausea, vo miting, or diarrhea. Additional pertinent values obtained include a white blood cell count of 4.4, magnesium of 0.4, AST of 64, and an alcohol level of 11. Hospital Course Hospital Course Hospital Course: 34-year-old male with history of alcohol dependence. Follows with outpatient addiction management for Vivitrol shots. Received 1 yesterday prior to onset of his symptoms. Was admitted overnight with improvement in symptoms. senior telecommunications specialist consulted and worked with patient during admission. Given improvement in symptoms, no active withdrawal symptoms, stable discharge home. Suspect symptoms leading to admission were secondary to interaction of his Vivitrol with recent alcohol use. Hemodynamically stable. Discharged home with encouragement to avoid alcohol due to side effects and adverse effects with Vivitrol shots. Patient stated understanding. Problems addressed as follows: Alcohol dependence Alcohol withdrawal - Presented with abdominal pain after receiving Vivitrol shot as an outpatient. Pain doing better by morning. Mild withdrawal symptoms on presentation, received 1 dose of phenobarbital. Symptoms of withdrawal resolved. Had no further withdrawal symptoms during admission. Overall feeling better by morning. Monitored for tolerance of p.o. intake. Liver enzymes remain normal. Stable to discharge home. Strongly encouraged to avoid alcohol. senior telecommunications specialist consulted during admission. Continue to follow with outpatient substance dependence provider. Leukopenia - Most likely in the setting of EtOH abuse. No neutropenia. No concern for infection. Hypomagnesia - Magnesium was replaced with MVI in the emergency room. Improved to 1.8 by morning. Potassium 3.6. Kidney function normal with BUN 11, creatinine 0.8. Total time spent on discharge 32 minutes in counseling, documentation, chart review, and direct care with patient. Exam Data for Last 24 hours Vital signs and Labs for Last 24 Hours: Temp Pulse Resp BP Pulse Ox O2 Del Method 98.2 F 50 L 18 144/89 H 97 Room Air 01/28/25 11:38 01/28/25 12:00 01/28/25 11:38 01/28/25 11:38 01/28/25 11:38 01/28/25 13:00 Laboratory Results - last 24 hr 01/27/25 21:02: WBC 4.4 L, RBC 4.62, Hgb 15.4, Hct 42.5, MCV 92.0, MCH 33.3 H, MCHC 36.2 H, RDW 12.9, Plt Count 163 D, MPV 9.7, Neut % (Auto) 65.9, Lymph % (Auto) 23.7, [place] % (Auto) 7.2, Eos % (Auto) 2.3, Baso % (Auto) 0.7, Neut # (Auto) 2.9, Lymph # (Auto) 1.1, [place] # (Auto) 0.3, Eos # (Auto) 0.1, Baso # (Auto) 0.0, PT 10.8, INR 0.96, APTT 25.6, Sodium 137, Potassium 3.5, Chloride 101, Carbon Dioxide 25, Anion Gap 14.5, BUN 9, Creatinine 0.80, Estimated Creat Clear 141, Estimated GFR 112, Est GFR ( Amer) 136, Glucose 98, Calcium 9.0, Phosphorus 2.9, Magnesium 1.4 L, Total Bilirubin 1.1, AST 64 H, ALT 52, Alkaline Phosphatase 86, Total Protein 6.9, Albumin 4.1, Globulin 2.8, Albumin/Globulin Ratio 1.5, Plasma/Serum Alcohol 11 H 01/28/25 00:29: Urine Opiates Screen Negative, Urine Methadone Screen Negative, Ur Barbituates Screen Positive H, Ur Phencyclidine Scrn Negative, Ur Amphetamines Screen Negative, U Benzodiazepines Scrn Negative, Urine Cocaine Screen Negative, U Marijuana (THC) Screen Negative 01/28/25 05:35: WBC 3.5 L, RBC 4.27 L, Hgb 14.1, Hct 40.4 L, MCV 94.6 H, MCH 33.0 H, MCHC 34.9, RDW 12.9, Plt Count 127 L, MPV 10.1, Neut % (Auto) 49.1, Lymph % (Auto) 36.5, [place] % (Auto) 8.6, Eos % (Auto) 4.9, Baso % (Auto) 0.6, Neut # (Auto) 1.7 L, Lymph # (Auto) 1.3, [place] # (Auto) 0.3, Eos # (Auto) 0.2, Baso # (Auto) 0.0, Sodium 136, Potassium 3.6, Chloride 101, Carbon Dioxide 33 H, Anion Gap 5.6, BUN 11, Creatinine 0.80, Estimated Creat Clear 137, Estimated GFR 112, Est GFR ( Amer) 136, Glucose 96, Calcium 8.6, Magnesium 1.8 D I & O for Last 24 hours: Intake & Output 01/25/25 01/26/25 01/27/25 01/28/25 23:59 23:59 23:59 23:59 Intake Total 1590 / 1590 Output Total 100 / 100 Balance 1490 / 1490 Weight 173.074 kg 173.074 kg Constitutional Constitutional: no acute distress, morbidly obese and cooperative *Routine HEENT Exam Head: Present normocephalic Eye: Present EOMI and PERRL ENT: Present mucous membranes moist *Routine Neck Exam Neck: Present supple; Absent lymphadenopathy *Routine Respiratory Exam Respiratory: Present CTA bilaterally; Absent rhonchi, wheezes or crackles *Routine Cardiovascular Exam Cardiovascular: Present RRR *Routine Abdominal Exam Abdominal: Present soft and normoactive bowel sounds; Absent tenderness *Routine Rectal Exam Patient deferred: visual exam *Routine Exam Patient deferred: penile exam *Routine Extremities Exam Extremities: Absent cyanosis, clubbing or edema *Routine Skin Exam Skin: Present warm; Absent rash *Routine Neurological Exam Neurological: Present alert, oriented X3 and moving all extremities; Absent altered mental status Results Data Completed and Pending Labs on day of discharge: Labs from last 24 hours 01/28/25 01/28/25 01/27/25 05:35 00:29 21:02 WBC 3.5 L 4.4 L RBC 4.27 L 4.62 Hgb 14.1 15.4 Hct 40.4 L 42.5 MCV 94.6 H 92.0 MCH 33.0 H 33.3 H MCHC 34.9 36.2 H RDW 12.9 12.9 Plt Count 127 L 163 D MPV 10.1 9.7 Neut % (Auto) 49.1 65.9 Lymph % (Auto) 36.5 23.7 [place] % (Auto) 8.6 7.2 Eos % (Auto) 4.9 2.3 Baso % (Auto) 0.6 0.7 Neut # (Auto) 1.7 L 2.9 Lymph # (Auto) 1.3 1.1 [place] # (Auto) 0.3 0.3 Eos # (Auto) 0.2 0.1 Baso # (Auto) 0.0 0.0 PT 10.8 INR 0.96 APTT 25.6 Sodium 136 137 Potassium 3.6 3.5 Chloride 101 101 Carbon Dioxide 33 H 25 Anion Gap 5.6 14.5 BUN 11 9 Creatinine 0.80 0.80 Estimated Creat Clear 137 141 Estimated GFR 112 112 Est GFR ( Amer) 136 136 Glucose 96 98 Calcium 8.6 9.0 Phosphorus 2.9 Magnesium 1.8 D 1.4 L Total Bilirubin 1.1 AST 64 H ALT 52 Alkaline Phosphatase 86 Total Protein 6.9 Albumin 4.1 Globulin 2.8 Albumin/Globulin Ratio 1.5 Urine Opiates Screen Negative Urine Methadone Screen Negative Ur Barbituates Screen Positive H Ur Phencyclidine Scrn Negative Ur Amphetamines Screen Negative U Benzodiazepines Scrn Negative Urine Cocaine Screen Negative U Marijuana (THC) Screen Negative Plasma/Serum Alcohol 11 H DS: Diagnosis Discharge Diagnosis (1) EtOH dependence: Status: Acute Code(s): F10.20 - Alcohol dependence, uncomplicated Qualifiers: Substance use status: unspecified alcohol-induced disorder Qualified Code(s): F10.29 - Alcohol dependence with unspecified alcohol-induced disorder (2) Hypomagnesemia: Status: Acute Code(s): E83.42 - Hypomagnesemia Meds Home Medications and Allergies Home Medications ?Medication ?Instructions ?Recorded ?Confirmed ?Type lisinopril 10 mg tablet 10 mg PO DAILY 11/17/24 01/27/25 History pantoprazole 40 mg tablet,delayed 40 mg PO DAILY 11/17/24 01/27/25 History release New Prescriptions to Start Prescriptions: Allergies Allergy/AdvReac Type Severity Reaction Status Date / Time vancomycin Allergy Intermediate itching & Verified 01/27/25 23:19 face edema Discharge Plan Disposition Patient Disposition: Home, Self-Care Condition: Good Discharge Order Discharge Orders: Discharge Order (Routine); Ordered 01/28/25 Ordered By: Sd Bravo Follow up Plan Follow up with: Anabella Brown APRN [Primary Care Provider] - Enter time for follow up (Please call for follow up appointment) Prescriptions/Medication Reconciliation: Continued pantoprazole 40 mg tablet,delayed release (DR/EC) 40 mg PO DAILY lisinopril 10 mg tablet 10 mg PO DAILY Problem Reconciliation Problems Reviewed?: Yes Patient Discharge Instructions ACTIVITY: Continue current activity DIET: continue same diet Patient Instructions: DI for Alcohol Use Disorder, DI for Hypomagnesemia Print Language: Syriac Providers Primary Care Provider: Anabella Brown Admit Provider: Sd Bravo Attending Provider: Sd Bravo
--- NOTE | 2025-01-29 09:53 | SW/DCPLANNER ---
Spoke with patient on the phone. Patient stated that he is doing good. Patient stated that while in the hospital he ate good and that when he got home he wasnt very hungry and ate a salad for dinner. Patient stated that all night last night he had diarrhea and it was nothing but water. I suggest that he called his primary care provider. Patient stated that he will also make a upcoming appointment with his PCP. Patient stated that he wasnt prescribed any new medicine. Patient denies having any concerns or questions. Razia Khan
--- NOTE | 2025-01-29 15:56 | PEERSUPPORT ---
Peer Support Note Patient Information Patient Information: DOS: 01/29/2025 ? Reason: ETOH ? Ps consult ? ETOH HX: Functional alcoholic for many years. Beer 12-24 pack, bourbon in coffee in the mornings. [place] at night after work with 6-12 beers, Doubled on the weekend. Socially drinks with family and coworkers. ? Previous Treatment: No treatment ? Desire for MAT: Pt is wanting to go to [facility] for MAT, support and Vivitrol injection. ? Longest Length of Sobriety: 2 years by choice to not drink, good experience. ? Legal Issues: None ? Support System: Mother in law- three years in AA, very supportive ? Current Stressors: -Responsibility to work. -Heart Health condition-fearful -Reality of life or ? Motivation for Change: -Pt stated he is going to [facility] to receive his vivitrol injection, he does not want to have to take a pill daily. He has already had conversations with his and in agreement of no drinking, has removed any and all alcohol from the home. He is able to identify his habits to people, places and things that will require him to no longer associate with. Pt is agreeing that can rearrange his garage and regular areas at his home to make necessary mind changes and awareness to maintain his sobriety. He has experienced sobriety for two years, remembers the better feeling of clarity so is accepting of the process to recovery now. Pt has his first time grandchild on the way, and is tearful when speaking of this as a motivation to make changes with no options to return to drinking as it is life or . Ps shared personal experience relevant to situation to give hope and strength to one day at a time and make priority his sobriety to enhance overall health. ? Pt receptive with ps agreeing to follow up phone calls for ongoing support. ? Potential Barriers: -Stress of health changes -Life Vest to be worn at all times -Responsibility and expectations with work, lack of boundaries. ? Harm Reduction: -Connection to [facility] for recovery focused support -Referral to [facility] -Education of AUD and Medication options available -Primary Care Follow up -Relapse prevention plan for weekend -Healthy communication awareness ? Plan of action: -Refrain from drinking alcohol -Take medication as directed -Attend appointment with [facility] -Follow up phone calls with [facility] ?
== END 2025-01-28 15:42 | disposition home or self-care (01) | DRG 897 ==
LOC: ER 20:51 → 2ND 01-28 00:30
PROVIDERS: Nurse Practitioner Family; Admitting Provider Internal Medicine Adolescent Medicine; Emergency Provider Student in an Organized Health Care Education/Training Program; PCP Nurse Practitioner; Visit Provider Internal Medicine Adolescent Medicine
DX: F10.139 Alcohol abuse with withdrawal, unspecified (principal); Z68.43 Body mass index [BMI] 50.0-59.9, adult; R11.2 Nausea with vomiting, unspecified; E66.01 Morbid (severe) obesity due to excess calories; I10 Essential (primary) hypertension; D72.819 Decreased white blood cell count, unspecified; F17.210 Nicotine dependence, cigarettes, uncomplicated; E83.42 Hypomagnesemia; Y90.0 Blood alcohol level of less than 20 mg/100 ml; T50.7X5A Adverse effect of analeptics and opioid receptor antagonists, initial encounter; Z79.899 Other long term (current) drug therapy; Z88.1 Allergy status to other antibiotic agents; Z90.49 Acquired absence of other specified parts of digestive tract; Z98.84 Bariatric surgery status
CPT/HCPCS: 36415; 80048; 80053; 80307; 80320; 83735; 84100; 85025; 85610; 85730; 99291; J1885; J3360; J3411; J7120

== ENCOUNTER 2025-08-05 10:27 | Emergency (ER) | payer BC, OTHER, SELFPAY ==
[2025-08-05] VITALS (9 sets, daily range): BP systolic 114–139; BP diastolic 66–82; PULSE 58–78; RESP 16–18; TEMP 36.6–36.8; O2SAT 98–100; BMI 52.0
--- NOTE | 2025-08-05 10:29 | ECG_ITS ---
APPROVED REPORT Exam: Resting ECG HR:69 bpm ECG Measurements Heart Rate 69 AXES VT 153 P 54 QRSd 102 QRS 52 QT 381 T 57 QTc 400 Conclusion SINUS RHYTHM NORMAL ECG UNCONFIRMED REPORT Normal sinus rhythm. No ST elevation or depression. QTc normal at 400 Electronically signed by : FIORELLA CASTELLANO, 08/05/2025 14:40:33
--- NOTE | 2025-08-05 10:32 | CT_ITS ---
FINAL REPORT TECHNIQUE: After the administration of oral and intravenous contrast, axial images were obtained through the abdomen and pelvis by computed tomography. The study was performed with techniques to keep radiation dose as low as reasonably achievable, (ALARA). Individual dose reduction techniques using automated exposure control or adjustment of mA and/or kV according to the patient's size were employed. CLINICAL HISTORY: left sided abd pain COMPARISON: 11/17/2024 FINDINGS: Abdomen: The lung bases are clear. The liver parenchyma demonstrates moderate fatty infiltration. The gallbladder is absent. There is evidence of a prior gastric sleeve procedure. The spleen, pancreas, adrenals and kidneys appear unremarkable. The aorta is normal in caliber. There is no free fluid or adenopathy. Pelvis: The appendix is normal in appearance. The urinary bladder is incompletely distended. There is no free fluid or adenopathy. IMPRESSION: Moderate fatty infiltration of the liver. Prior cholecystectomy. Reviewed, Interpreted and Dictated by Vineet Perez MD Transcribed by Shelia Rodriguez Authenticated and [facility]
--- NOTE | 2025-08-05 10:32 | CT_ITS ---
FINAL REPORT TECHNIQUE: The patient was injected with IV contrast. Axial images were obtained through the chest in a PE protocol. 3-D reconstruction images were also performed. Individualized dose reduction techniques using automated exposure control or adjustment of the MA and/or KV according to patient's size were employed. CLINICAL HISTORY: shortness of breath COMPARISON: None FINDINGS: Mediastinal vasculature is adequately opacified. No pulmonary artery filling defects are identified to suggest PE. There is no aortic dissection. There is evidence of a prior gastric sleeve procedure. The gallbladder has been surgically resected. There is no axillary adenopathy. There is no hilar or mediastinal adenopathy. The heart size is normal. There is no pericardial or pleural effusion. Limited images of the upper abdomen are unremarkable. There is a 4 mm nodule along the minor fissure best seen on image #53 of series 5, that may represent a small fissural node. IMPRESSION: No pulmonary embolus, aneurysm or dissection. 4 mm nodule along the minor fissure likely represents a small intrafissural node. Reviewed, Interpreted and Dictated by Vineet Perez MD Transcribed by Shelia Rodriguez Authenticated and [facility]
[2025-08-05 10:40] LABS: Coronavirus 19, PCR Not Detected (NotDetected); Influenza A, PCR Not Detected (NotDetected); Influenza B, PCR Not Detected (NotDetected)
[2025-08-05 10:45] LABS: Hematocrit 45.0 % (42.0-52.0); Hemoglobin 15.6 g/dL (14.1-18.0); Immature Granulocytes % 0.3 %; Mean Corpuscular HGB Conc 34.7 g/dL (31.8-35.4); Mean Corpuscular Hemoglobin 30.6 pg (27.0-31.2); Mean Corpuscular Volume 88.2 fl (80-94); Nucleated Red Blood Cells % 0 %; Platelet Count 235 K/mm3 (142-424); Red Blood Count 5.10 M/mm3 (4.60-6.20); Red Cell Distribution Width-SD 40.8 fL; White Blood Count 7.8 K/mm3 (4.8-10.8)
[2025-08-05 10:51] LABS: Albumin Level 3.2 g/dl (3.5-5.0); Chloride 98 mmol/L (98-107)
[2025-08-05 10:52] LABS: Potassium 3.7 mmoL/L (3.5-5.1); Sodium 130 mmol/L (136-145)
[2025-08-05 10:54] LABS: Alanine Aminotransferase 26 U/L (12-78); Albumin/Globulin Ratio 0.9 (1.1-1.8); Alkaline Phosphatase 94 U/L (38-126); Anion Gap 7.7 mEq/L (5-15); Aspartate Amino Transferase 31 U/L (17-59); Bilirubin,Total 1.1 mg/dl (0.2-1.3); Blood Urea Nitrogen 13 mg/dl (9-20); Carbon Dioxide 28 mmol/L (22.0-30.0); Creatinine Clearance Estimated 161 mL/min (50-200); Creatinine,Serum 0.70 mg/dl (0.66-1.25); Estimated Glomerular Filt Rate 131 ml/min (>60); GFR (African American) 158 ML/MIN (>60); Globulin 3.7 g/dL (1.3-3.2); Lipase 19 U/L (23-300); Total Protein,Serum 6.9 g/dl (6.3-8.2)
[2025-08-05 10:55] LABS: Calcium 8.8 mg/dl (8.4-10.2); Glucose 97 mg/dl (74-100); Magnesium 1.4 mg/dl (1.6-2.3)
--- OUTSIDE RECORDS SUMMARY | 2025-08-05 11:02 | XMS_ITS | Patient Health Record ---
Author Organization [facility] Address [address] [place] [phone] Allergies No Known Allergies Reason For Referral No Information Medications Medication SIG (Take, Route, Frequency, Duration) Notes Start Date End Date Status Fluticasone Propionate 50 MCG/ACT Suspension 1 spray in each nostril Nasally Once a day; Duration: 30 days 10/28/2023 Active Levocetirizine Dihydrochloride 5 MG Tablet Oral; Duration: 30 Days Active hydroCHLOROthiazide 25 MG Tablet Oral; Duration: 90 Days Active FLUoxetine HCl 10 MG Capsule Oral; Durat ion: 30 Days Active FeroSul 325 (65 Fe) MG Tablet Oral; Dura tion: 30 Days Active Fluticasone Propionate 50 MCG/ACT Suspension Nasal; Duration: 60 Days Active Pantoprazole Sodium 40 MG Tablet Delayed Release Oral; Duration: 90 Days Active Azithromycin 250 MG Tablet Oral; Duratio n: 5 Days Not-Taking Ventolin HFA 108 (90 Base) MCG/ACT Aerosol Solution Inhalation; Duration: 16 Days Active Azithromycin 250 MG Tablet Oral; Duratio n: 5 Days Active Lisinopril 10 MG Tablet Oral; Duration: 90 Days Active Vitamin C 250 MG Tablet Chewable Oral; Duration: 30 Days Active Cyclobenzaprine HCl 10 MG Tablet Oral; Duration: 10 Days Active Social History Tobacco Use: Social History Observation Description Date Details (start date - stop date) Never Smoker NA - NA Social History Tobacco Use: Social Info Question Answer Notes Tobacco Use/Smoking Tobacco use: nonsmoker Additional Details Category Social Info Options Details Drug/Alcohol: Do you drink alcohol? No Problems Problem Type SNOMED Code ICD Code Onset Dates Problem Status W/U Status Risk Notes Problem Acute maxillary sinusitis (51625029) Acute recurrent maxillary sinusitis (J01.01) Active confirmed Problem Vertigo (397957033) Vertigo (R42) Active confirmed Problem Acute non-suppurati ve otitis media (814552998) Other recurrent acute nonsuppurative otitis media of both ears (H65.196) Active confirmed Plan Of Treatment No Information Insurance Providers Payer Name Payer Address Payer Phone Subscriber Number Group Number Insured Name Patient Relationship to Insured Coverage Start Date Coverage End Date UHC - Medicaid [id number] Pete Santoyo Self - patient is the insured Medical (General) History Medical History History ICD Code Hypertension Asthma Surgical History Surgery Date(Month/Year) Cholecystectomy Gastric sleeve Tonsillectomy
--- OUTSIDE RECORDS SUMMARY | 2025-08-05 11:02 | XMS_ITS | Clinical Summary ---
Author Organization [facility] Address [address] [place] [phone] Phone [email or web address] Care Team Providers Care Hospital Sales Representative Name Role Phone Xiao Brownie Primary Care Provider [phone] Allergies Active Allergy Reactions Criticality Noted Date Comments Fish Allergy Anaphylaxis High 11/10/2015 Fish Protein-Containing Drug Products Anaphylaxis High 03/29/2022 Latex Rash Low 03/16/2025 Medications disulfiram (ANTABUSE) 250 MG tablet Take 250 mg by mouth 1 (one) time each day. 5 Active EPINEPHrine (EPIPEN) 0.3 MG/0.3ML injection syringe Inject 1 Syringe as directed if needed for anaphylaxis. 3 Active omeprazole (PriLOSEC) [address] capsule Take 20 mg by mouth once daily as needed. 4 Active lisinopril (ZESTRIL) 10 MG tablet Take 10 mg by mouth 1 (one) time each day. Active Trelegy Ellipta 200-62.5-25 MCG/ACT aerosol powder INHALE 1 PUFF BY MOUTH DAILY 5 Active pantoprazole (PROTONIX) 40 MG EC tablet TAKE 1 TABLET BY MOUTH ONCE DAILY 1/2 TO 1 HOUR BEFORE BREAKFAST Active Albuterol Sulfate 108 (90 Base) MCG/ACT aerosol powder Inhale 180 mcg. Active Active Problems Problem Noted Date Diagnosed Date Morbid obesity Hypertension GERD (gastroesophageal reflux disease) Encounters Date Type Department Care Team Description 07/07/2025 Orders Only [address] [place] [address] Serafin Pagan ARRT Pain in both knees, unspecified chronicity from Last 3 Months Social History Tobacco Use Types Packs/Day Years Used Date Smoking Tobacco: Every Day E-Cigarettes Smokeless Tobacco: Never Tobacco Cessation:Ready to Q uit: Not Asked; Counseling Given: Not Answered Depression Answer Date Recorded PHQ Total Score 0 07/06/2025 Sex and Gender Information Value Date Recorded Sex Assigned at Not on file Legal Sex Male 6:37 AM CDT Gender Identity Not on file Sexual Orientation Not on file Last Filed Vital Signs Vital Sign Reading Time Taken Comments Blood Pressure 145/83 07/19/2025 4:43 PM EDT Pulse 85 07/19/2025 4:43 PM EDT Temperature 36.7 C (98 F) 07/06/2025 7:36 PM EDT Respiratory Rate 18 07/19/2025 4:43 PM EDT Oxygen Saturation 96% 07/19/2025 4:43 PM EDT Inhaled Oxygen Concentration - - Weight 185 kg (407 lb 1.6 oz) 07/06/2025 7:36 PM EDT Height 180.3 cm (5' 11 ) 07/06/2025 7:36 PM EDT Body Mass Index 56.78 07/06/2025 7:36 PM EDT Plan of Treatment Upcoming Encounters Date Type Department Care Team (Late st Contact Info) Description 08/09/2025 10:00 PM EST Occ Office Visit [facility] [address] [place] [address] Fabiana Meza PA [address] [place] [address] Health Maintenance Due Date Last Done Comments Dental Cleaning/Exam 1992 HIV Screening 1992 Hepatitis C Screening 1992 HPV Immunization (1 - Male 3-dose series) 2007 Hep B Infection Screening - Triple Screen 2010 Hepatitis B Immunization (1 of 3 - 19+ 3-dose series) 2011 Pneumococcal Immunization (1 of 2 - PCV) 2011 Covid-19 Immunization ( - 2024-25 season) 2025 Influenza Immunization (#1) 2025 Annual Preventive Exam 03/16/2026 03/16/2025 Asthma Spirometry 03/16/2027 03/16/2025 Tetanus Diphtheria and Pertussis Immunization (3 - Td or Tdap) 12/11/2033 12/12/2023, 05/05/2003 HIB Immunization Aged Out No longer e ligible based on patient's age to complete this topic Hepatitis A Immunization Aged Out No longer eligible based on patient's age to complete this topic Polio Immunization Aged Out No longer eligible based on patient's age to complete this topic Varicella Immunization Aged Out No lo nger eligible based on patient's age to complete this topic Procedures Procedure Name Priority Date/Time Associated Diagnosis Comments XR KNEE, COMPLETE, 4 OR MORE VIEWS - RIGHT CPT 01846 Routine 07/07/2025 6:38 AM EDT Pain in both knees, unspecified chronicity XR KNEE, COMPLETE, 4 OR MORE VIEWS -LEFT CPT 61078 Routine 07/07/2025 6:37 AM EDT Pain in both knees, unspecified chronicity SPIROMETRY WITHOUT BRONCHODILATOR Routine 03/16/2025 4:16 PM EDT Encounter for pre-employment health screening examination from Last 3 Months or Most Recently Relevant to Health Maintenance Results * XR Knee, complete, 4 or more views - right CPT 11880 (07/07/2025 6:38 AM EDT) Anatomical Region Laterality Modality Lower Extremities, Knee Right [facility] Imaging Impressions 07/07/2025 6:38 AM EDT IMPRESSION: Moderate tricompartment osteoarthritis, slightly worse than the contralateral left knee. No acute osseous injury. /Central Ordered By: FABIANA Guan 07/07/2025 6:38 AM EDT Examination X-Ray 4 Views of the Right Knee Comparison: DX - LT KNEE STANDING - 07/07/25 18:16 CDT Findings The soft tissues are unremarkable. No fracture or other acute abnormality. Degenerative changes are noted in the lateral and medial and patellofemoral compartment with marginal osteophytes and joint space narrowing and spurring of the tibial spines. There is no significant joint effusion. There is no calcified loose body present. Dystrophic calcifications within the lower pretibial anterior soft tissues. Procedure Note EXPERITY TELERADIOLOGY PROVIDER - 07/07/2025 Examination X-Ray 4 Views of the Right Knee Comparison: DX - LT KNEE STANDING - 07/07/25 18:16 CDT Findings The soft tissues are unremarkable. No fracture or other acute abnormality. Degenerative changes are noted in the lateral and medial andpatellofemoral compartment with marginal osteophytes and joint spacenarrowing and spurring of the tibial spines. There is no significant joint effusion. There is no calcified loose body present. Dystrophic calcifications within the lower pretibial anterior softtissues. IMPRESSION: IMPRESSION: Moderate tricompartment osteoarthritis, slightly worse than thecontralateral left knee. No acute osseous injury. /Central Ordered By: FABIANA MEZA Fabiana APARICIO IMG XR PROCEDURES Final Resu lt * XR Knee, complete, 4 or more views - left CPT 70340 (07/07/2025 6:37 AM EDT) Anatomical Region Laterality Modality Lower Extremities, Knee Left Radiogra phic Imaging Impressions 07/07/2025 6:37 AM EDT IMPRESSION: Moderate tricompartment osteoarthritis, no acute osseous injury. /Central Ordered By: FABIANA MEZA Narrative 07/07/2025 6:37 AM EDT Examination X-Ray 4 Views of the Left Knee Comparison: None provided. Findings The soft tissues are unremarkable. No fracture or other acute abnormality. Degenerative changes are noted in the lateral and medial and patellofemoral compartment with marginal osteophytes and joint space narrowing and spurring of the tibial spines. There is no significant joint effusion. There is no calcified loose body present. Procedure Note EXPERITY TELERADIOLOGY PROVIDER - 07/07/2025 Examination X-Ray 4 Views of the Left Knee Comparison: None provided. Findings The soft tissues are unremarkable. No fracture or other acute abnormality. Degenerative changes are noted in the lateral and medial andpatellofemoral compartment with marginal osteophytes and joint spacenarrowing and spurring of the tibial spines. There is no significant joint effusion. There is no calcified loose body present. IMPRESSION: IMPRESSION: Moderate tricompartment osteoarthritis, no acute osseous injury. /Central Ordered By: FABIANA MEZA Fabiana APARICIO IMG XR PROCEDURES Final Resu lt * (ABNORMAL) Spirometry, Complete CPT 97795 (03/16/2025 4:16 PM EDT) FVC 4.23 liters Comment:75% FEV1 3.21 liters Comment:71% FEV1/FVC 80% % Comment:98% Breath 03/16/2025 4:16 PM EDT Narrative Flower Urbano NP - 03/16/2025 4:16 PM EDT Morbid obesity, current vaping, asthma Flower Urbano NP PFT ORDERABLES Final Result from Last 3 Months or Most Recently Relevant to Health Maintenance Care Teams Hospital Sales Representative Relationship Specialty Start Date End Date Anaeblla Brown [facility] [address] [id number] PCP - General 07/11/25
--- OUTSIDE RECORDS SUMMARY | 2025-08-05 11:02 | XMS_ITS | Encounter Summary ---
Author Organization [facility] ([place], [place], [place], [place]) Address [address] [place] [address] Care Team Providers Care Insurance Sales Manager Name Role Phone Mily Valentino APRN Primary Care Provider [phone] Reason for Visit * Reason Comments Medication Refill Encounter Details Date Type Department Care Team (Late st Contact Info) Description 03/23/2024 Refill [facility] Primary Care - [address] [address] Mily Valentino APRN [address] [place] [phone] Anxiety and depression Social History Tobacco Use Types Packs/Day Years Used Date Smoking Tobacco: Former Passive Smoke Exposure: Past Smokeless Tobacco: Never Alcohol Use Standard Drinks/Week Comments Never 0 (1 standard drink = 0.6 oz pur e alcohol) Hunger Vital Sign Answer Date Recorded Within the past 12 months, y ou worried that your food would run out before you got the money to buy more. Never true 12/08/19 23 Within the past 12 months, t he food you bought just didn't last and you didn't have money to get more. Never true 12/07/2022 PRAPARE - Transportation Answer Date Re corded In the past 12 months, has l ack of transportation kept you from medical appointments or from getting medications? No 12/2022 In the past 12 months, has l ack of transportation kept you from meetings, work, or from getting things needed for daily living? No 12/07/2022 Food Insecurity Answer Date Recorded Food run out past 12 months Not on file 10/07 Food did not last past 12 months Not on file 10/25/2023 Employment Answer Date Recorded Help finding and keeping a job Not on file 0 10/25/2023 Family and Community Support Answer Vini e Recorded Help with Day to Day Activities Not on file 10/25/2023 Feeling Lonely or Isolated Not on file 10/25 Educational Attainment Answer Date Rolando rded Speak language other than Yoruba at home Not on file 10/25/2023 Want help with school or training Not on file 10/25/2023 Substance Use Answer Date Recorded Used prescription meds for non-medical reasons N ot on file 10/25/2023 Used illegal drugs past 12 months Not on file 10/25/2023 Sex and Gender Information Value Date Recorded Sex Assigned at Not on file Legal Sex Male 11:08 AM CDT Gender Identity Not on file Sexual Orientation Not on file documented as of this encounter Plan of Treatment Not on file documented as of this encounter Visit Diagnoses Diagnosis Anxiety and depression documented in this encounter Care Teams Insurance Sales Manager Relationship Specialty Start Date End Date Mily Valentino, DISPUTE SPECIALIST [address] [facility] [place] [address] PCP - General Primary Care 06/25/22 documented as of this encounter
--- OUTSIDE RECORDS SUMMARY | 2025-08-05 11:02 | XMS_ITS | Encounter Summary ---
Author Organization [employer] ([place], [place], [place], [place]) Address [address] [place] [address] Care Team Providers Care Print And Pattern Designer Name Role Phone Mily Valentino APRN Primary Care Provider [phone] Reason for Visit * Reason Comments Medication Refill Encounter Details Date Type Department Care Team (Late st Contact Info) Description 03/19/2024 Refill [facility] Primary Care - [address] [address] Mily Valentino APRN [address] [place] [phone] Bilateral lower extremity edema Social History Tobacco Use Types Packs/Day Years [...] Date Rolando rded Speak language other than Brazilian at home Not on file 10/25/2023 Want [...] as of this encounter Visit Diagnoses Diagnosis Bilateral lower extremity edema documented in this encounter Care Teams Print And Pattern Designer Relationship Specialty Start Date End Date Mily Valentino, MUD TEMPERER [address] [facility] [place] [address] PCP - General Primary Care 06/25/22 documented as of this encounter
--- OUTSIDE RECORDS SUMMARY | 2025-08-05 11:02 | XMS_ITS | Clinical Summary ---
Author Organization [employer] ([place], [place], [place], [place]) Address [address] [place] [address] Care Team Providers Care Client Operations Manager Name Role Phone Mily Valentino APRN Primary Care Provider [phone]- [phone] Allergies No known active allergies Medications multivitamin capsule Take 1 capsule by mouth daily. Active cholecalciferol (VITAMIN D3) 125 mcg (5,000 unit) tabletIndications :Bariatric surgery status Take 1 tablet (5,000 Units total) by mouth in the morning. 90 tablet 3 3 Active albuterol sulfate 90 mcg/actuation AePB Inhale 180 mcg by mouth via inhaler every 4 (four) hours. Active EPINEPHrine (EPIPEN) 0.3 mg/0.3 mL AtIn Inject intramuscularl y. 3 Active ascorbic acid, vitamin C, (Vitamin C) 500 mg ChewIndications:B ariatric surgery status Take 1 tablet by mouth daily. 90 tablet 3 3 Active hydroCHLOROthiazi de (HYDRODIURIL) 25 MG tabletIndications :Bilateral lower extremity edema TAKE 2 TABLETS (50mg total) BY MOUTH EVERY DAY 180 tablet 4 Active fLUoxetine (PROzac) 20 MG capsuleIndication s:Anxiety and depression Take 1 capsule (20 mg total) by mouth daily. 90 capsule 1 4 Active hydrOXYzine (ATARAX) 25 MG tablet Take 1 tablet (25 mg total) by mouth 3 (three) times daily as needed for itching Look-alike/S ound-alike medication. 90 tablet 4 Active pantoprazole (PROTONIX) 40 MG tablet take 1 tablet by mouth once daily before largest meal of the day for stomach 30 tablet 4 Active lisinopriL (ZESTRIL) 10 MG tabletIndications :Primary hypertension take 1 tablet (10 MILLIGRAM total) by mouth daily FOR BLOOD PRESSURE and/or TO PROTECT KIDNEYS 90 tablet 4 Active Active Problems Problem Noted Date Diagnosed Date Depression 07/28/2024 GERD (gastroesophageal reflux disease) Family History Medical History Relation Name Comments Asthma Father Heart disease Father Hypertension Father Thyroid disease Father Hypertension Mother Diabetes Paternal Grandfather Diabetes Paternal Uncle Relation Name Status Comments Father Mother Paternal Grandfather Paternal Uncle Social History Tobacco Use Types Packs/Day Years Used Date Smoking Tobacco: Former Passive Smoke Exposure: Past Smokeless Tobacco: Never Tobacco Cessation:Counseling Given: Not Answered Alcohol Use Standard Drinks/Week Comments Never 0 [...] Date Rolando rded Speak language other than Slovak at home Not on file 10/25/2023 Want [...] Sign Reading Time Taken Comments Blood Pressure 146/94 07/23/2024 3:46 PM EDT Pulse 85 07/23/2024 3:46 PM EDT Temperature 36.7 C (98.1 F) 07/23/2024 3:46 PM EDT Respiratory Rate 16 12/06/2022 10:36 AM EST Oxygen Saturation 98% 07/23/2024 3:46 PM EDT Inhaled Oxygen Concentration - - Weight 171.5 kg (378 lb) 07/23/2024 3:46 PM EDT Height 180.3 cm (5' 11 ) 07/23/2024 3:46 PM EDT Body Mass Index 52.72 07/23/2024 3:46 PM EDT Plan of Treatment Health Maintenance Due Date Last Done Comments DTAP/TDAP/TD VACCINES (2 - Td or Tdap) 05/05/2013 05/05/2003 Lipid Panel 05/29/2026 05/29/2023, 12/06/2022 Tobacco Cessation Counseling and Screening (12+) Discontinued 07/23/2024 COVID-19 VACCINE Discontinued HIV Screening Discontinued Hepatitis C Screening Discontinued Influenza Vaccine Discontinued Pneumococcal Vaccine: 0-49 Years Aged Out No longer eligible b ased on patient's age to complete this topic Procedures Procedure Name Priority Date/Time Associated Diagnosis Comments LIPID PANEL Routine 05/29/2023 2:51 PM EDT Primary hypertension Bilateral lower extremity edema Bariatric surgery status from Last 3 Months or Most Recently Relevant to Health Maintenance Results * Lipid panel (05/29/2023 2:51 PM EDT) Cholesterol, Total 152 100 - 199 mg/dL [facility] Triglycerides 58 0 - 149 mg/dL [facility] HDL Cholesterol 76 >39 mg/dL [facility] VLDL Cholesterol Rafy 12 5 - 40 mg/dL [facility] LDL Calculated 64 0 - 99 mg/dL [facility] Blood 05/29/2023 2:51 PM EDT 05/29/2023 Narrative [facility] - 05/30/2023 8:11 AM EDT Performed at: - [facility] [address] [id number] Assistant Hairstylist: Fausto Kimble PhD, Phone: [phone] Mily Valentino FUR FINISHER TAILOR LAB BLOOD ORDERABLES Final Result [facility] from Last 3 Months or Most Recently Relevant to Health Maintenance Insurance [facility] [place] Care Teams Client Operations Manager Relationship Specialty Start Date End Date Mily Valentino APRN [address] [place] [address] PCP - General Primary Care 06/25/22
--- OUTSIDE RECORDS SUMMARY | 2025-08-05 11:02 | XMS_ITS | Encounter Summary ---
Author Organization [employer] ([place], [place], [place], [place]) Address [address] [place] [address] Care Team Providers Care Guide Setter Name Role Phone Mily Valentino APRN Primary Care Provider [phone]- [phone] Reason for Visit * Reason Comments Medication Refill Encounter Details Date Type Department Care Team (Late st Contact Info) Description 12/05/2022 Refill [facility] Primary Care - [address] [address] Mily Valentino APRN [address] [place] [address] Social History Tobacco Use Types Packs/Day Years Used Date Smoking Tobacco: Never Assessed Hunger Vital Sign Answer Date Recorded Within [...] things needed for daily living? No 12/07/2022 Sex and Gender Information Value Date Recorded Sex Assigned at Not on file Legal Sex Male 11:08 AM CDT Gender Identity Not on file Sexual Orientation Not on file documented as of this encounter Functional Status * Over the past 2 weeks, how often have you been bothered by any of the following problems? Question Answer Date of Assessment Author Little interest or pleasure in doing things Not at all 12/06/2022 10:40 AM Jayne Salgado CMA Feeling down, depressed, or hopeless Not at all 12/06/2022 10:40 AM Jayne Salgado CMA Patient Health Questionnaire -2 Score 0 12/06/2022 10:40 AM Jayne Salgado CMA documented as of this encounter Plan of Treatment Not on file documented as of this encounter Visit Diagnoses Not on filedocumented in this encounter Care Teams Guide Setter Relationship Specialty Start Date End Date Mily Valentino, SENIOR DIGITAL DESIGNER [address] [facility] [place] [address] PCP - General Primary Care 06/25/22 documented as of this encounter
--- OUTSIDE RECORDS SUMMARY | 2025-08-05 11:02 | XMS_ITS | Referral Summary ---
Author Organization [employer] ([place], [place], [place], [place]) Address [address] [place] [address] Care Team Providers Care Transit Bus Driver Name Role Phone Mliy Valentino APRN Primary Care Provider +1- [phone] Allergies No known active allergies Medications multivitamin [...] Date Depression 07/28/2024 GERD (gastroesophageal reflux disease) Social History Tobacco Use Types Packs/Day Years [...] Date Rolando rded Speak language other than Mohawk at home Not on file 10/25/2023 Want [...] 07/23/2024 3:46 PM EDT Plan of Treatment Not on file Procedures Procedure Name Priority Date/Time Associated Diagnosis [...] - 05/30/2023 8:11 AM EDT Performed at: 01 - [facility] [id number] Mobile Engineer: Fausto Kimble PhD, Phone: [phone] us Mily Valentino APRN LAB BLOOD ORDERABLES Final Result [facility] from Last 3 Months or Most Recently Relevant to Health Maintenance Insurance [facility] [place] [place] Care Teams Transit Bus Driver Relationship Specialty Start Date End Date Mily Valetnino, BOTTOM BUFFER [address] [facility] [address] PCP - General Primary Care 06/25/22
--- OUTSIDE RECORDS SUMMARY | 2025-08-05 11:02 | XMS_ITS | Encounter Summary ---
Author Organization [employer] ([place], [place], [place], [place]) Address [address] [place] [address] Care Team Providers Care Marine Oil Terminal Superintendent Name Role Phone Mily Valentino APRN Primary Care Provider +1- [phone] Reason for Visit * Reason Comments Medication Refill Encounter Details Date Type Department Care Team (Late st Contact Info) Description 04/23/2024 Refill [facility] Primary Care - [address] [address] Mily Valentino APRN [address] [place] [address] Anxiety and depression Social History Tobacco [...] Date Rolando rded Speak language other than Divehi at home Not on file 10/25/2023 Want [...] depression documented in this encounter Care Teams Marine Oil Terminal Superintendent Relationship Specialty Start Date End Date Mily Valentino, MACHINE LOADER [address] [facility] [place] [address] PCP - General Primary Care 06/25/22 documented as of this encounter
--- OUTSIDE RECORDS SUMMARY | 2025-08-05 11:02 | XMS_ITS | Encounter Summary ---
Author Organization [facility] Address [address] [place], [place] [id number] Phone [email or web address] Care Team Providers Care Bilingual Operator Name Role Phone Unavailable Primary Care Provider Unavailabl e Encounter Details Date Type Department Care Team (Late Contact Info) Description 07/07/2025 Orders Only [facility] [address] [place] [address] Serafin Pagan ARRT [address] [place] [address] Pain in both knees, unspecified chronicity Social History Tobacco Use Types Packs/Day Years Used Date Smoking Tobacco: Every Day E-Cigarettes Smokeless Tobacco: Never Depression Answer Date Recorded PHQ Total Score 0 07/06/2025 Sex and Gender Information Value Date Recorded Sex Assigned at Not on file Legal Sex Male 6:37 AM CDT Gender Identity Not on file Sexual Orientation Not on file documented as of this encounter Plan of Treatment Upcoming Encounters Date Type Department Care Team (Late st Contact Info) Description 08/09/2025 10:00 PM EST Occ Office Visit [facility] [address] [place] [address] Fabiana Meza PA [address] [place] [address] documented as of this encounter Procedures Procedure Name Priority Date/Time Associated Diagnosis Comments XR KNEE, COMPLETE, 4 OR MORE VIEWS - RIGHT CPT 26645 Routine 07/07/2025 6:38 AM EDT Pain in both knees, unspecified chronicity XR KNEE, COMPLETE, 4 OR MORE VIEWS -LEFT CPT 89862 Routine 07/07/2025 6:37 AM EDT Pain in both knees, unspecified chronicity documented in this encounter Results * XR Knee, complete, 4 or more views - right CPT 59423 (07/07/2025 6:38 AM EDT) Anatomical Region Laterality Modality Lower Extremities, Knee Right [facility] Impressions 07/07/2025 6:38 AM EDT IMPRESSION: Moderate tricompartment osteoarthritis, slightly worse than the contralateral left knee. No acute osseous injury. /Central Ordered By: FABIANA MEZA Narrative 07/07/2025 6:38 AM EDT Examination X-Ray 4 [...] 4 or more views - left CPT 83300 (07/07/2025 6:37 AM EDT) Anatomical Region Laterality Modality Lower Extremities, Knee Left [facility] Impressions 07/07/2025 6:37 AM EDT IMPRESSION: [...] osseous injury. /Central Ordered By: FABIANA MEZA us Fabiana APARICIO IMG XR PROCEDURES Final Resu lt documented in this encounter Visit Diagnoses Diagnosis Pain in both knees, unspecified chronicity documented in this encounter
--- OUTSIDE RECORDS SUMMARY | 2025-08-05 11:02 | XMS_ITS | Encounter Summary ---
Author Organization [employer] ([place], [place], [place], [place]) Address [address] [place] [address] Care Team Providers Care Web Operations Lead Name Role Phone Mily Valentino APRN Primary Care Provider [phone] Reason for Visit * Reason Comments Medication Refill Encounter Details Date Type Department Care Team (Late st Contact Info) Description 02/14/2024 Refill [facility] Primary Care - [address] [address] Mily Valentino APRN [address] [place] [address] Anxiety and depression Social History Tobacco [...] Date Rolando rded Speak language other than Kinyarwanda at home Not on file 10/25/2023 Want [...] on file documented as of this encounter Miscellaneous Notes * Telephone Encounter - Luz Adan CMA - 02/14/2024 7:39 AM EDT Needs appt documented in this encounter Plan of Treatment Not on file documented as of this encounter Visit Diagnoses Diagnosis Anxiety and depression documented in this encounter Care Teams Web Operations Lead Relationship Specialty Start Date End Date Mily Valentino, BARGE HAND [address] [facility] [place] [address] PCP - General Primary Care 06/25/22 documented as of this encounter
--- OUTSIDE RECORDS SUMMARY | 2025-08-05 11:02 | XMS_ITS | Clinical Summary ---
Author Organization [facility] Address [address] [place] [address] Care Team Providers Care Getterer Name Role Phone Mily Valentino APRN Primary Care Provider Allergies Active Allergy Reactions Criticality Noted Date Comments Egg Protein-Containing Drug Products Anaphylaxis High 11/15/2022 Fish Protein-Containing Drug Products Anaphylaxis High 03/29/2022 Chlorhexidine Rash Low 05/07/2024 CHG wipes Medications * This document contains information received from the source organization and may not represent a complete record from that organization. albuterol sulfate HFA 108 (90 Base) MCG/ACT inhaler Inhale 2 puffs Every 4 (Four) Hours As Needed for Wheezing. Active pantoprazole (PROTONIX) 40 MG EC tablet Take 1 tablet by mouth Daily. 02/23/20 22 Active FLUoxetine (PROzac) 10 MG capsule Take 1 capsule by mouth Daily. 04/16/20 22 Active multivitamin with minerals tablet tablet Take 1 tablet by mouth Daily. Active vitamin D3 125 MCG (5000 UT) capsule capsule Take 1 capsule by mouth Daily. Active ferrous gluconate (FERGON) 324 MG tablet Take 1 tablet by mouth Daily With Breakfast. Active Cyanocobalamin (B-12) 3000 MCG capsule Take 1 capsule by mouth Daily. Active thiamine (VITAMIN B-1) 100 MG tablet tablet Take 1 tablet by mouth Daily. Active calcium carbonate (OS-LINDY) 600 MG tablet Take 1 tablet by mouth Daily. Active vitamin C (ASCORBIC ACID) 250 MG tablet Take 1 tablet by mouth Daily. Active EPINEPHrine (EPIPEN) 0.3 MG/0.3ML solution auto-injector injection Inject into the appropriate muscle as directed by prescriber. 02/27/20 Active fluticasone (FLONASE) 50 MCG/ACT nasal spray Daily. 06/18/20 Active lisinopril (PRINIVIL,ZESTRIL) 10 MG tablet Take 1 tablet by mouth Daily. 05/29/20 Active meclizine (ANTIVERT) 25 MG tablet Take 1 tablet by mouth 3 (Three) Times a Day As Needed for Dizziness. 15 tablet 04/18/20 Active promethazine (PHENERGAN) 12.5 MG tablet Take 1 tablet by mouth Every 6 (Six) Hours As Needed for Nausea. 10 tablet 05/07/2024 11:28 AM EDT 05/07/20 Active hydrOXYzine (ATARAX) 25 MG tablet Take 1 tablet by mouth. 04/23/20 Active oxyCODONE (Roxicodone) 5 MG immediate release tabletIndications: Epigastric pain Take 1 tablet by mouth Every 4 (Four) Hours As Needed for Moderate Pain. 12 tablet 05/29/20 Active sucralfate (CARAFATE) 1 GM/10ML suspension Take 10 mL by mouth 3 (Three) Times a Day. 414 mL 07/11/20 Active ondansetron ODT (ZOFRAN-ODT) 4 MG disintegrating tablet Take 1 tablet by mouth 4 (Four) Times a Day As Needed for Nausea or Vomiting. 12 tablet 07/11/20 Active ibuprofen (ADVIL,MOTRIN) 600 MG tablet Take 1 tablet by mouth Every 6 (Six) Hours As Needed for Mild Pain or Moderate Pain. 20 tablet 07/11/20 Active omeprazole (priLOSEC) 20 MG capsule Take 1 capsule by mouth Daily. 14 capsule 07/11/20 Active Active Problems Problem Noted Date Diagnosed Date Epigastric pain 04/21/2024 Body mass index (BMI) of 70 or greater in adult 11/09/2022 Overview (11/09/2022): Added automatically from request for surgery [id number] Morbid obesity with body mass index of 70 and ov er in adult 11/06/2022 Morbid obesity 03/29/2022 Fatigue 03/29/2022 Dyspepsia 03/29/2022 Dyspnea on exertion 03/29/2022 Hypertension 03/29/2022 Former smoker 03/29/2022 Anxiety and depression 03/29/2022 Asthma 03/29/2022 Overview (03/29/2022): prn inhaler use, does not follow w/ pulmonary GERD (gastroesophageal reflux disease) 2 Overview (03/29/2022): improved w/ daily PPI, remote EGD unremarkable Hx MRSA infection 10/07/2012 Overview (03/29/2022): on the abdomen, s/p I&D w/ IV abx Resolved Problems Problem Noted Date Diagnosed Date Resolved Date Hiatal hernia 04/24/2024 05/07/2024 Family History Medical History Relation Name Comments Heart disease Father Thyroid disease Father Diabetes Maternal Grandfather Hypertension Maternal Grandfather Diabetes Maternal Grandmother Hypertension Maternal Grandmother Hypertension Mother Kidney failure Mother Relation Name Status Comments Father Maternal Grandfather Maternal Grandmother Mother Social History Tobacco Use Types Packs/Day Years Used Date Smoking Tobacco: Former Cigarettes 0.5 5 0 10/07/2009 - 10/07/2014 Smokeless Tobacco: Never Tobacco Cessation:Counseling Given: Not Answered Alcohol Use Standard Drinks/Week Comments Yes 0 (1 standard drink = 0.6 oz pur e alcohol) occ AUDIT-C Answer Date Recorded Q1: How often do you have a drink containing alcohol? Never 11/21/2022 Q2: How many drinks containi ng alcohol do you have on a typical day when you are drinking? Patient does not drink Q3: How often do you have si x or more drinks on one occasion? Never 11/21/2022 Abuse Screen Answer Date Recorded Feels Unsafe at Home or Work/School no 07/11/2024 Feels Threatened by Someone no 02/2024 Does Anyone Try to Keep You From Having Contact with Others or Doing Things Outside Your Home? no 07/11/2024 Physical Signs of Abuse Present no 07/11/2024 Housing Stability Answer Date Recorded Current Living Arrangements home 10/2023 Potentially Unsafe Housing Conditions Not on man e 05/07/2024 Family and Community Support Answer Vini e Recorded Help with Day-to-Day Activities Not on file 07/14/2023 Lonely or Isolated Not on file 07/14/2023 Employment Answer Date Recorded Do you want help finding or keeping work or a karime b? Not on file 07/14/2023 Disabilities Answer Date Recorded Difficulty Concentrating, Remembering or Making Decisions no 05/07/2024 Difficulty Managing Errands Independently no 05/07/2024 Education Answer Date Recorded Help with school or training? Not on file Preferred Language Not on file 12/11/2023 Sex and Gender Information Value Date Recorded Sex Assigned at Not on file Legal Sex Male 10:37 AM EDT Gender Identity Not on file Sexual Orientation Not on file Last Filed Vital Signs Vital Sign Reading Time Taken Comments Blood Pressure 162/81 07/11/2024 6:59 AM EDT Pulse 85 07/11/2024 8:32 AM EDT Temperature 36.7 C (98 F) 07/11/2024 6:36 AM EDT Respiratory Rate 20 07/11/2024 6:36 AM EDT Oxygen Saturation 98% 07/11/2024 7:04 AM EDT Inhaled Oxygen Concentration - - Weight 172 kg (379 lb 3.1 oz) 07/11/2024 6:36 AM EDT Height 180.3 cm (5' 11 ) 07/11/2024 6:36 AM EDT Body Mass Index 52.89 07/11/2024 6:36 AM EDT Plan of Treatment Health Maintenance Due Date Last Done Comments Pneumococcal Vaccine 0-49 (1 of 2 - PCV) 2011 ANNUAL PHYSICAL 04/01/2020 HEPATITIS C SCREENING 04/01/2020 INFLUENZA VACCINE 05/07/2025 TDAP/TD VACCINES (3 - Td or Tdap) 12/11/2033 024, 05/05/2003 Medical Devices Implanted Type Area Senior Animator Device Identifier Shelf Expiration Date Model / Serial / Lot Stplr Gastrc/Slv Titan/Sgs Non/Articulr Pwr 23cm 1/Pu - [id number] Implanted:Qty : 1 on 11/21/2022 by Cade Deleon MD at [facility] Implant N/A: Stomach [employer] [id number] 03/20/2023 [id number] / / [id number] Description:Tracking #: [id number] Kt Seal Hemos Abs Floseal Matrx Fast/Prep 10ml - [id number] Implanted:Qty : 1 on 11/21/2022 by Cade Deleon MD at [facility] Implant N/A: Stomach [employer] 08/14/2024 [id number] / / [id number] Dev Contrl Tiss Stratafix Spiral Pds Pls 3/0 0 15cm Katherine - [id number] Implanted:Qty : 1 on 11/21/2022 by Cade Deleon MD at [facility] Implant N/A: Stomach [employer] J [employer] J 07/06/2024 [id number] / / [id number] Dev Cls Wnd Vloc/Pbt Cathy Nonabs 1/2cir Sz2/0 27mm 23cm Giacomo - [id number] Implanted:Qty : 1 on 05/07/2024 by Cade Deleon MD at [facility] Implant N/A: Abdomen COVID[employer]EN 06/06/2025 [id number] / / [id number] Explanted Type Area Senior Animator Device Identifier Shelf Expiration Date Model / Serial / Lot Dev Cls Wnd Vloc/Pbt Cathy Nonabs 1/2cir Sz2/0 26mm 15cm Giacomo - [id number] Explanted:Qty: 1 on 05/07/2024 by Cade Deleon MD at [facility] Implant N/A: Abdomen COVIDIEN 12/04/2026 [id number] / / [id number] Insurance [facility] [place] Advance Directives * CPR (Attempt to Resuscitate) (Latest Code Status on File) Date Activated Date Inactivated Comments 11/21/2022 3:58 PM 11/22/2022 8:59 PM Question Answer Comments Code Status (Patient has no pulse and is not breathing): CPR (Attempt to Resuscitate) Medical Interventions (Patie nt has pulse or is breathing): Full Support Level Of Support Discussed With: Patient Release to patient: Routine Release Care Teams Getterer Relationship Specialty Start Date End Date Mily Valentino APRN [address] [id number] PCP - General Nurse Practitioner 03/13/22
--- OUTSIDE RECORDS SUMMARY | 2025-08-05 11:02 | XMS_ITS | Encounter Summary ---
Author Organization [employer] ([place], [place], [place], [place]) Address [address] [place] [address] Care Team Providers Care Recruiting Associate Name Role Phone Mily Valentino APRN Primary Care Provider [phone]- [phone] Reason for Visit * Reason Comments Medication Refill Encounter Details Date Type Department Care Team (Late st Contact Info) Description 11/30/2022 Refill [facility] Primary Care - [address] [address] Mily Valentino, HOSPITALITY HOUSEKEEPER [address] [place] [address] Social History Tobacco Use Types Packs/Day Years Used Date Smoking Tobacco: Never Assessed Sex and Gender Information Value Date Recorded Sex Assigned at Not on file Legal Sex Male 11:08 AM CDT Gender Identity Not on file Sexual Orientation Not on file documented as of this encounter Plan of Treatment Not on file documented as of this encounter Visit Diagnoses Not on filedocumented in this encounter Care Teams Recruiting Associate Relationship Specialty Start Date End Date Mily Valentino APRN [address] [place] [address] PCP - General Primary Care 06/25/22 documented as of this encounter
--- OUTSIDE RECORDS SUMMARY | 2025-08-05 11:02 | XMS_ITS | Encounter Summary ---
Author Organization [employer] ([place], [place], [place], [place]) Address [address] [place] [address] Care Team Providers Care Mechanical Applications Engineer Name Role Phone Mily Valentino APRN Primary Care Provider [phone] Reason for Visit * Reason Comments Medication Refill Encounter Details Date Type Department Care Team (Late st Contact Info) Description 09/17/2023 Refill [facility] Primary Care - [address] [address] Mily Valentino APRN [address] [place] [address] Social History Tobacco Use Types Packs/Day [...] on filedocumented in this encounter Care Teams Mechanical Applications Engineer Relationship Specialty Start Date End Date Mily Valentino, FIRST HELPER [address] [place] [address] PCP - General Primary Care 06/25/22 documented as of this encounter
--- OUTSIDE RECORDS SUMMARY | 2025-08-05 11:02 | XMS_ITS | Clinical Summary ---
Author Organization [facility] Address [address] [place] [address] Care Team Providers Care Travel Clerk Name Role Phone Fernando Viramontes DO Primary Care Provider [phone] Allergies Active Allergy Reactions Criticality Noted Date Comments Chlorhexidine Rash Low 05/07/2024 CHG wipes Egg-Derived Products Anaphylaxis High 11/15/2022 Fish Allergy Unknown - Patient st ates they do not know rxn details Low 11/10/2015 Fish-Derived Products Anaphylaxis High 03/29/2022 Family History Medical History Relation Name Comments Conversions - Other Father Family h istory unknown Conversions - Other Mother Family h istory unknown Relation Name Status Comments Father Mother Social History Tobacco Use Types Packs/Day Years Used Date Smoking Tobacco: Never Alcohol Use Standard Drinks/Week Comments Yes 0 (1 standard drink = 0.6 oz pur e alcohol) AUDIT-C Answer Date Recorded Q1: How often do you have a drink containing alcohol? 4 or more times a week 06/16/2024 Q2: How many drinks containi ng alcohol do you have on a typical day when you are drinking? 10 or more Q3: How often do you have si x or more drinks on one occasion? Daily or almost daily 06/16/2024 CAGE ASSESSMENT Answer Date Recorded Cage unable to access Not on file 06/16/2024 Maximum number of drinks you had on a given occasion in the last month? 5 or more drinks 06/16/2024 How many alcoholic Beverages do you typically drink in a week? 8 - 14 per week 06/16/2024 Have you ever felt you shoul d CUT down on your drinking? 1 06/16/2024 Have you been ANNOYED by peo ple criticizing your drinking? 1 06/16/2024 Have you felt GUILTY about your drinking? 1 06/16/2024 Have you had a drink first t david in the morning (EYE-METAL MINE INSPECTOR) to steady your nerves or to get rid of a hangover? 1 06/16/2024 CAGE Questionnaire Score 4 024 Sex and Gender Information Value Date Recorded Sex Assigned at Not on file Legal Sex Male 8:21 PM EDT Gender Identity Not on file Sexual Orientation Not on file Last Filed Vital Signs Vital Sign Reading Time Taken Comments Blood Pressure 158/96 06/16/2024 7:34 PM EDT Pulse 71 06/16/2024 7:34 PM EDT Temperature 36.9 C (98.5 F) 06/16/2024 7:34 PM EDT Respiratory Rate 18 06/16/2024 7:34 PM EDT Oxygen Saturation 97% 06/16/2024 7:34 PM EDT Inhaled Oxygen Concentration - - Weight 169 kg (371 lb 14.7 oz) 06/16/2024 1:05 P M EDT Height 177.8 cm (5' 10 ) 06/16/2024 1:05 PM EDT Body Mass Index 53.36 06/16/2024 1:05 PM EDT Plan of Treatment Health Maintenance Due Date Last Done Comments [facility]-Depression Screening 1992 [facility]-Infant/Child/Adol SDOH Screenings 1992 [facility]-Obesity Intervention 1998 [facility]-Varicella Vaccines (1 of 2 - 13+ 2-dose series) 2005 [facility]- SDOH Screenings 2010 [facility]-Adult SDOH Screenings 2010 [facility]-Hepatitis B Vaccines (1 of 3 - 19+ 3-dose series) 2011 HPV Vaccines (1 - 3-dose SCD M series) 2019 [id number] Vaccine ( - 2023- season) 2025 [facility]-Influenza Vaccine (#1) 2025 [facility]-DTaP,Tdap,and Td Vaccine s (3 - Td or Tdap) 12/11/2033 12/12/2023, 05/05/2003 [facility]-Zoster Vaccines (1 of 2) 2042 [facility]-HIV Screening Completed 05/31/2020 [facility]-Hepatitis C Screening Completed 2019, 01/06/2019 [facility]-HIB Vaccines Aged Out No longer e ligible based on patient's age to complete this topic [facility]-Hepatitis A Vaccines Aged Out No longer eligible based on patient's age to complete this topic [facility]-IPV Vaccines Aged Out No longer e ligible based on patient's age to complete this topic [facility]-Pneumococcal Vaccine: Pediatrics (0 to 5 Years) and At-Risk Patients (6 to 49 Years) Aged Out No longer eligible b ased on patient's age to complete this topic [facility]-Rotavirus Vaccines Aged Out No lo nger eligible based on patient's age to complete this topic Procedures Procedure Name Priority Date/Time Associated Diagnosis Comments HEPATITIS C ANTIBODY - ED W/REFLEX TO HCV QUANT PCR Routine 05/31/2020 7:42 PM EDT HIV 1/2 ANTIBODY/ANTIGEN SCREEN WITH REFLEX TO HIV I/II DIFFERENTIATION Routine 05/31/2020 7:42 PM EDT from Last 3 Months or Most Recently Relevant to Health Maintenance Results * HIV 1 & 2 Antibody/Antigen Screen (05/31/2020 7:42 PM EDT) HIV 1 Result NONREACTIVE Screening for HIV 1 and 2 antibodies is NONREACTIVE. No confirmatory testing is required. SUNQUEST 05/31/2020 7:42 PM EDT 05/31/2020 8:08 PM EDT Sd [facility] LAB BLOOD ORDERABLES Final Resul t Performing Organization Address [facility] de Phone Number SUNQUEST * [facility] Hepatitis C Antibody (05/31/2020 7:42 PM EDT) [facility] Hepatitis C Ab NEGATIVE Reference Range: Negative SUNQUEST 05/31/2020 7:42 PM EDT 05/31/2020 8:08 PM EDT Cricket Vazquez MD LAB BLOOD ORDERABLES Final Re sult SUNQUEST from Last 3 Months or Most Recently Relevant to Health Maintenance Insurance [facility] MEDICAID Care Teams Travel Clerk Relationship Specialty Start Date End Date Fernando Viramontes DO [address] [facility] [address] [place] [address] PCP - General 02/17/21
[2025-08-05] MEDS: ONDANSETRON 4MG/2ML VIAL 4 MG IV (11:08)
--- NOTE | 2025-08-05 11:08 | ED_ITS ---
<Statement entered by Mainor Huerta MD - 08/05/25 14:53> I was consulted by the MELISSA, and we discussed the complexity of the problems being addressed. I approve the treatment and management plan for this patient's care in the emergency department, thus performing a substantive portion of the medical decision making. Mainor Huerta MD Discharge Plan Disposition Patient Disposition: Home, Self-Care Prescriptions Prescriptions: Continued pantoprazole 40 mg tablet,delayed release (DR/EC) 40 mg PO DAILY No Action lisinopril 10 mg tablet 10 mg PO DAILY Referrals Follow up/Referrals: Anabella Brown APRN [Primary Care Provider, Medical] - See instructions Wilfredo Thomson MD [Staff Physician, Cardiology] - See instructions Katie Ward MD [Physician, Pulmonology] - See instructions Referral Note: Incidental Lung Nodule Activity Restrictions/Add. Instructions Additional Instructions/Restrictions: Increase fluids and rest. Take your Protonix as directed. Follow-up with PCP. CT scan did show a incidental lung nodule so I would like follow-up with the pulmonary doctor. Also we will get a follow-up with cardiology for stress test and echo. Clinical Impressions Clinical Impression: Chest pain, Nausea & vomiting, Incidental lung nodule Stand Alone Forms Stand Alone Forms: Work/School Release Instructions Patient Instructions: DI for Nausea in Adults, DI for Chest Pain, DI for Pulmonary Nodule Print Language Print Language: Yakut Discharge ED Provider: Mainor Huerta HPI <Anabella Brown (ED), [employer] - Last Filed: 08/05/25 14:23> General Chief Complaint: Chest Pain Stated Complaint: chest pain Time Seen by Provider: 08/05/25 10:32 Mode of Arrival: Ambulatory Source of Information: Patient Description of Symptoms (Recalled from ER Triage Doc. by RN): pt presents to the ED with chest pressure and shortness of breath. pt reports that he woke up this morning when he started having chest pressure. pt states that he was sitting in the chair when he started having trouble catching his breath. pt states it feels like someone is sitting on his chest. Pt reports having vomiting last night. Denies abdominal pain. History of Present Illness HPI narrative: 34-year-old male presents to the ED today with chest pressure and shortness of breath that started this morning. He says he woke up and started having pressure that felt like an elephant sitting on his chest. He also had left upper abdominal pain. He has had vomiting over the past week. He has also had some diarrhea but none today. He denies any current vomiting. Patient is my primary care patient, just for information, patient is trying to recover from alcohol and recently had a day where he did mess up and drink alcohol. Patient has a history of pancreatitis. He recently got back into a rehab center and started taking recently. He is trying to stop drinking. Related Data Home Medications ?Medication ?Instructions ?Recorded ?Confirmed lisinopril 10 mg tablet 10 mg PO DAILY 11/17/2401/06 pantoprazole 40 mg tablet,delayed 40 mg PO DAILY 11/1701/27/25 release Allergies Allergy/AdvReac Type Severity Reaction Status Date / Time vancomycin Allergy Intermediate itching & Verified 01/27/25 23:19 face edema PFS <Anabella Brown (ED), [employer] HELPER - Last Filed: 08/05/25 14:23> [facility] Disclaimer: The information contained in this section may have been updated after the patient was seen, as this information can be updated by other users. Medical History (Updated 08/05/25 @ 14:19 by Anabella Brown (ED), [employer] HELPER) Hypertension Surgical History History of tonsillectomy H/O gastric sleeve Hx of cholecystectomy Family History Other Family history of DVT Family history of myocardial infarction Social History Smoking Status: Current every day smoker alcohol intake: current current occupational status: employed Travel in the last 8 weeks?: None Have you lived/traveled outside [place] in past 30 days?: No Contact w/someone who lives/traveled outside US past 30 days?: No Exposure to someone with infectious disease in past 14 days?: No Do you have a fever (greater than 100.4 F or 38 C)?: No Have you tested positive for COVID-19?: No Exposed to someone with COVID-19 in past 14 days?: No Do you have a sore throat?: No Do you have a cough?: No Do you have any weakness?: No Do you have any diarrhea?: No Are you experiencing any unusual bleeding?: No Do you have any muscle aches/pain?: No Do you have any abdominal pain?: No Are you experiencing loss of taste or smell?: No Other Medical History Have you received the Flu Vaccine for this season: No Have you received the Pneumonia Vaccine: No <Anabella Brown (ED), [employer] HEL[employer] - Last Filed: 08/05/25 14:23> ROS Obtained: Yes Systems reviewed as appropriate & no additional complaints except as documented Constitutional Constitutional: Reports as per HPI Physical Exam <Anabella Brown (ED), [employer] HELPER - Last Filed: 08/05/25 14:23> General General appearance: alert and in distress Head Head exam: normocephalic Eye Eye exam: Present PERRL and EOMI ENT ENT exam: Present normal oropharynx and mucous membranes moist Neck Neck exam: Present full ROM and trachea midline Respiratory Respiratory exam: Present normal lung sounds bilaterally Cardiovascular Cardiovascular exam: Present regular rate, normal rhythm, normal heart sounds, +S1 and +S2 Abdominal Exam Abdominal exam: Present soft and normal bowel sounds Extremities Exam Extremities exam: Present normal inspection, full ROM and normal capillary refill Neurological Exam Neurological exam: Present alert and oriented X3 Skin Skin exam: Present warm and dry HEART Score <Anabella Brown (ED), [employer] HELPER - Last Filed: 08/05/25 14:23> HEART Score HEART Score assessment performed?: Yes History (anamnesis): Slightly suspicious ECG: Normal Age: <45 years Risk factors: 1-2 risk factors Troponin: </= normal limit HEART Score: 1 <Mainor Huerta MD - Last Filed: 08/05/25 12:01> HEART Score HEART Score: 1 Critical Care <Anabella Brown (ED), [employer] HELPER - Last Filed: 08/05/25 14:23> Critical Care Time Critical Care Time: No Medical Decision Making <Anabella Brown (ED), [employer] HELPER - Last Filed: 08/05/25 14:23> M[place]or Inquiry Pt receiving controlled substance: No Mynor was queried for this patient: No Vital Signs Vital Signs: 08/05/25 10:28 08/05/25 10:28 08/05/25 10:31 Temperature 98.3 F 98.3 F Temperature Source Oral Oral Pulse Rate 76 73 Pulse Rate [Right] 76 Respiratory Rate 18 18 Blood Pressure 139/66 129/74 Blood Pressure [Right Arm] 139/66 Blood Pressure Mean Blood Pressure Mean [Right Arm] 90 Blood Pressure Source Automatic Cuff Blood Pressure Source [Right Arm] Automatic Cuff Blood Pressure Position Supine Blood Pressure Position [Right Arm] Supine 02 Sat by Pulse Oximetry 100 100 98 Oxygen Delivery Method Room Air Room Air Room Air 08/05/25 10:39 08/05/25 11:01 08/05/25 11:35 Temperature Temperature Source Pulse Rate 78 72 58 L Pulse Rate [Right] Respiratory Rate 16 Blood Pressure 129/79 134/77 Blood Pressure [Right Arm] Blood Pressure Mean 98 Blood Pressure Mean [Right Arm] Blood Pressure Source Blood Pressure Source [Right Arm] Blood Pressure Position Blood Pressure Position [Right Arm] 02 Sat by Pulse Oximetry 100 99 Oxygen Delivery Method Room Air 08/05/25 12:01 08/05/25 12:34 08/05/25 13:01 Temperature Temperature Source Pulse Rate 62 67 70 Pulse Rate [Right] Respiratory Rate Blood Pressure 114/73 138/82 116/77 Blood Pressure [Right Arm] Blood Pressure Mean Blood Pressure Mean [Right Arm] Blood Pressure Source Blood Pressure Source [Right Arm] Blood Pressure Position Blood Pressure Position [Right Arm] 02 Sat by Pulse Oximetry 98 99 100 Oxygen Delivery Method Lab Data Labs: Lab Results 08/05/25 10:34: WBC 7.8, RBC 5.10, Hgb 15.6, Hct 45.0, MCV 88.2, MCH 30.6, MCHC 34.7, RDW 12.7, Plt Count 235, MPV 9.8, Neut % (Auto) 67.4, Lymph % (Auto) 22.5, [place] % (Auto) 6.0, Eos % (Auto) 3.2, Baso % (Auto) 0.6, Neut # (Auto) 5.3, Lymph # (Auto) 1.8, [place] # (Auto) 0.5, Eos # (Auto) 0.3, Baso # (Auto) 0.1, Sodium 130 L, Potassium 3.7, Chloride 98, Carbon Dioxide 28, Anion Gap 7.7, BUN 13, Creatinine 0.70, Estimated Creat Clear 161, Estimated GFR 131, Est GFR ( Amer) 158, Glucose 97, Calcium 8.8, Magnesium 1.4 L, Total Bilirubin 1.1, AST 31, ALT 26, Alkaline Phosphatase 94, Troponin I < 0.01, Total Protein 6.9, A lbumin 3.2 L, Globulin 3.7 H, Albumin/Globulin Ratio 0.9 L, Lipase 19 L, HCV Ab JUMA w/Rflx PCR Qn Negative, HIV Ag/Ab Combo Qual Negative 08/05/25 10:36: SARS-CoV-2 (PCR) Not detected, Influenza A Untype (PCR) Not detected, Influenza Type B (PCR) Not detected 08/05/25 13:06: Troponin I < 0.01 08/05/25 10:34 08/05/25 10:34 Response Orders (Tests/Meds): ED MEDICATIONS Generic Name Dose Route Start Last Admin Trade Name Freq PRN Reason Stop Dose Admin Sodium Chloride 8 ml 08/05/25 10:32 Sodium Chloride 0.9% 10ml Vial IV 09/04/25 10:31 NEEDED PRN dilute pepcid Discontinued Medications Generic Name Dose Route Start Last Admin Trade Name Freq PRN Reason Stop Dose Admin Aspirin 325 mg 08/05/25 10:32 08/05/25 11:09 Aspirin 325mg Tablet PO 08/05/25 10:33 325 mg ONCE ONE Administration Famotidine 20 mg 08/05/25 10:32 08/05/25 11:09 Famotidine 20mg/2ml Vial IV 08/05/25 10:33 20 mg ONCE ONE Administration Sodium Chloride 1,000 mls @ 999 mls/hr 08/05/25 10:32 08/05/25 12:31 Sod Chlor 0.9% 1000ml Bag IV 08/05/25 11:32 Infused .Q1H1M ONE Infusion Magnesium Sulfate 2 gm in 50 mls @ 50 mls/hr 08/05/25 11:34 08/05/25 13:01 Magnesium Sulfate 2gm/50ml Premix IV 08/05/25 12:33 Infused ONCE ONE Infusion Iopamidol 80 ml 08/05/25 11:27 08/05/25 11:29 Iopamidol-370 (76%);100ml Bottle IV 08/05/25 11:28 80 ml ONCE ONE Administration Ondansetron HCl 4 mg 08/05/25 10:34 08/05/25 11:08 Ondansetron 4mg/2ml Vial IV 08/05/25 10:35 4 mg ONCE ONE Administration Sodium Chloride 50 ml 08/05/25 11:28 08/05/25 11:29 0.9 % Sodium Chloride 50 Ml Vial IV 08/05/25 11:29 50 ml ONCE ONE Administration Sodium Chloride 10 ml 08/05/25 11:28 08/05/25 11:29 Sodium Chloride 0.9% 10ml Syr (Rad Only) IV 08/05/25 11:29 10 ml ONCE ONE Administration ORDERS Category Date Time Status CT abdomen pelvis w con Stat Cat Scan 08/05/25 10:32 Completed CTA Chest [CT angio chest PE protocol] Stat Cat Scan 08/05/25 10:32 Completed CBC [Complete Blood Count Auto Diff] Stat Lab 08/05/25 10:34 Completed Comprehensive Metabolic Panel Stat Lab 08/05/25 10:34 Completed HIV Combo Stat Lab 08/05/25 10:34 Completed Hepatitis C Ab Qual. W/ RFX Stat Lab 08/05/25 10:34 Completed Lipase Stat Lab 08/05/25 10:34 Completed Magnesium Stat Lab 08/05/25 10:34 Completed Rapid PCR Covid and Flu A/B Stat Lab 08/05/25 10:36 Completed Trop I [Troponin I] Stat Lab 08/05/25 10:34 Completed Troponin I Q3H Lab 08/05/25 13:06 Completed Troponin I Q3H Lab 08/05/25 16:45 Ordered MDM Narrative Medical Decision Narrative: patient is a 34-year-old male presenting to the emergency department for evaluation of chest pain, shortness of breath and left upper abdominal pain. Patient is hemodynamically stable and nontoxic-appearing upon arrival, afebrile. Differential diagnosis includes ACS, pancreatitis, PE, anxiety anxiety, among others, among others. Workup will be conducted with hematologic labs, specific imaging, provocative tests. Initial inventions include crystalloid bolus, analgesics, antibiotics, etc.. Initial workup reviewed by md hematologic labs are remarkable for white cell count is 7.8, sodium was 130 mag was 1.4 replaced here in the ED lipase was low at 19. COVID and flu were negative. CT scan showed no PE, aneurysm or dissection but showed a 4 mm pulmonary nodule along the minor fissure. Will set him up with pulmonology for this. Also talked to patient about doing cardiology follow-up for stress test and echo. Patient is safe for discharge home he will follow-up with PCP. <Mainor Huerta MD - Last Filed: 08/05/25 12:01> Vital Signs Vital Signs: 08/05/25 10:28 08/05/25 10:28 08/05/25 10:31 Temperature 98.3 F 98.3 F Temperature Source Oral Oral Pulse Rate 76 73 Pulse Rate [Right] 76 Respiratory Rate 18 18 Blood Pressure 139/66 129/74 Blood Pressure [Right Arm] 139/66 Blood Pressure Mean Blood Pressure Mean [Right Arm] 90 Blood Pressure Source Automatic Cuff Blood Pressure Source [Right Arm] Automatic Cuff Blood Pressure Position Supine Blood Pressure Position [Right Arm] Supine 02 Sat by Pulse Oximetry 100 100 98 Oxygen Delivery Method Room Air Room Air Room Air 08/05/25 10:39 08/05/25 11:01 08/05/25 11:35 Temperature Temperature Source Pulse Rate 78 72 58 L Pulse Rate [Right] Respiratory Rate 16 Blood Pressure 129/79 134/77 Blood Pressure [Right Arm] Blood Pressure Mean 98 Blood Pressure Mean [Right Arm] Blood Pressure Source Blood Pressure Source [Right Arm] Blood Pressure Position Blood Pressure Position [Right Arm] 02 Sat by Pulse Oximetry 100 99 Oxygen Delivery Method Room Air 08/05/25 12:01 08/05/25 12:34 08/05/25 13:01 Temperature Temperature Source Pulse Rate 62 67 70 Pulse Rate [Right] Respiratory Rate Blood Pressure 114/73 138/82 116/77 Blood Pressure [Right Arm] Blood Pressure Mean Blood Pressure Mean [Right Arm] Blood Pressure Source Blood Pressure Source [Right Arm] Blood Pressure Position Blood Pressure Position [Right Arm] 02 Sat by Pulse Oximetry 98 99 100 Oxygen Delivery Method Lab Data Labs: Lab Results 08/05/25 10:34: WBC 7.8, RBC 5.10, Hgb 15.6, Hct 45.0, MCV 88.2, MCH 30.6, MCHC 34.7, RDW 12.7, Plt Count 235, MPV 9.8, Neut % (Auto) 67.4, Lymph % (Auto) 22.5, [place] % (Auto) 6.0, Eos % (Auto) 3.2, Baso % (Auto) 0.6, Neut # (Auto) 5.3, Lymph # (Auto) 1.8, [place] # (Auto) 0.5, Eos # (Auto) 0.3, Baso # (Auto) 0.1, Sodium 130 L, Potassium 3.7, Chloride 98, Carbon Dioxide 28, Anion Gap 7.7, BUN 13, Creatinine 0.70, Estimated Creat Clear 161, Estimated GFR 131, Est GFR ( Amer) 158, Glucose 97, Calcium 8.8, Magnesium 1.4 L, Total Bilirubin 1.1, AST 31, ALT 26, Alkaline Phosphatase 94, Troponin I < 0.01, Total Protein 6.9, A lbumin 3.2 L, Globulin 3.7 H, Albumin/Globulin Ratio 0.9 L, Lipase 19 L, HCV Ab JUMA w/Rflx PCR Qn Negative, HIV Ag/Ab Combo Qual Negative 08/05/25 10:36: SARS-CoV-2 (PCR) Not detected, Influenza A Untype (PCR) Not detected, Influenza Type B (PCR) Not detected 08/05/25 13:06: Troponin I < 0.01 Response Orders (Tests/Meds): ED MEDICATIONS Generic Name Dose Route Start Last Admin Trade Name Freq PRN Reason Stop Dose Admin Sodium Chloride 8 ml 08/05/25 10:32 Sodium Chloride 0.9% 10ml Vial IV 09/04/25 10:31 NEEDED PRN dilute pepcid Discontinued Medications Generic Name Dose Route Start Last Admin Trade Name Freq PRN Reason Stop Dose Admin Aspirin 325 mg 08/05/25 10:32 08/05/25 11:09 Aspirin 325mg Tablet PO 08/05/25 10:33 325 mg ONCE ONE Administration Famotidine 20 mg 08/05/25 10:32 08/05/25 11:09 Famotidine 20mg/2ml Vial IV 08/05/25 10:33 20 mg ONCE ONE Administration Sodium Chloride 1,000 mls @ 999 mls/hr 08/05/25 10:32 08/05/25 12:31 Sod Chlor 0.9% 1000ml Bag IV 08/05/25 11:32 Infused .Q1H1M ONE Infusion Magnesium Sulfate 2 gm in 50 mls @ 50 mls/hr 08/05/25 11:34 08/05/25 13:01 Magnesium Sulfate 2gm/50ml Premix IV 08/05/25 12:33 Infused ONCE ONE Infusion Iopamidol 80 ml 08/05/25 11:27 08/05/25 11:29 Iopamidol-370 (76%);100ml Bottle IV 08/05/25 11:28 80 ml ONCE ONE Administration Ondansetron HCl 4 mg 08/05/25 10:34 08/05/25 11:08 Ondansetron 4mg/2ml Vial IV 08/05/25 10:35 4 mg ONCE ONE Administration Sodium Chloride 50 ml 08/05/25 11:28 08/05/25 11:29 0.9 % Sodium Chloride 50 Ml Vial IV 08/05/25 11:29 50 ml ONCE ONE Administration Sodium Chloride 10 ml 08/05/25 11:28 08/05/25 11:29 Sodium Chloride 0.9% 10ml Syr (Rad Only) IV 08/05/25 11:29 10 ml ONCE ONE Administration ORDERS Category Date Time Status CT abdomen pelvis w con Stat Cat Scan 08/05/25 10:32 Completed CTA Chest [CT angio chest PE protocol] Stat Cat Scan 08/05/25 10:32 Completed CBC [Complete Blood Count Auto Diff] Stat Lab 08/05/25 10:34 Completed Comprehensive Metabolic Panel Stat Lab 08/05/25 10:34 Completed HIV Combo Stat Lab 08/05/25 10:34 Completed Hepatitis C Ab Qual. W/ RFX Stat Lab 08/05/25 10:34 Completed Lipase Stat Lab 08/05/25 10:34 Completed Magnesium Stat Lab 08/05/25 10:34 Completed Rapid PCR Covid and Flu A/B Stat Lab 08/05/25 10:36 Completed Trop I [Troponin I] Stat Lab 08/05/25 10:34 Completed Troponin I Q3H Lab 08/05/25 13:06 Completed Troponin I Q3H Lab 08/05/25 16:45 Ordered ECG Data Tracing #1: Attestation: I reviewed this ECG and interpreted as documented below: ECG Narrative: Normal sinus rhythm. No ST elevation or depression. QTc normal at 400
[2025-08-05] MEDS: FAMOTIDINE 20MG/2ML VIAL 20 MG IV (11:09)
[2025-08-05] MEDS: ASPIRIN 325MG TABLET 325 MG PO (11:09)
[2025-08-05] MEDS: 0.9 % SODIUM CHLORIDE 1000ML 1,000 ML 999 ML IV (11:09)
[2025-08-05 11:17] LABS: Troponin I < 0.01 ng/ml (0.00-0.034)
[2025-08-05] MEDS: 0.9 % SODIUM CHLORIDE 50 ML VIAL IV (11:29)
[2025-08-05] MEDS: IOPAMIDOL-370 (76%);100ML BOTTLE 80 ML IV (11:29)
[2025-08-05] MEDS: SODIUM CHLORIDE 0.9% 10ML SYR (RAD ONLY) 10 ML IV (11:29)
[2025-08-05] MEDS: MAGNESIUM SULFATE IN WATER 2 GM/50 ML PIGGYBACK IV (11:43)
[2025-08-05 12:27] LABS: Hepatitis C Ab Qual. W/ RFX NEGATIVE (Negative)
[2025-08-05 14:06] LABS: Troponin I < 0.01 ng/ml (0.00-0.034)
== END 2025-08-05 14:45 | disposition home or self-care (01) ==
PROVIDERS: Emergency Provider Student in an Organized Health Care Education/Training Program; PCP Nurse Practitioner
DX: R07.9 Chest pain, unspecified (principal); R10.12 Left upper quadrant pain; E87.1 Hypo-osmolality and hyponatremia; R11.2 Nausea with vomiting, unspecified; R91.1 Solitary pulmonary nodule; I10 Essential (primary) hypertension; F17.210 Nicotine dependence, cigarettes, uncomplicated
CPT/HCPCS: 71275; 74177; 80053; 83690; 83735; 84484; 85025; 86803; 87389; 87636; 93005; 96361; 96365; 96375; 99285; J1308; J2405; J3475; J7030; Q9967

== ENCOUNTER 2025-09-17 14:55 | Outpatient (RCR) | payer BC, OTHER, SELFPAY | END 2025-09-17 23:59 | disposition home or self-care (01) | LOC: PT 14:55 | PROVIDERS: PCP Nurse Practitioner; Visit Provider Nurse Practitioner | DX: R42 Dizziness and giddiness (principal) | CPT/HCPCS: 97162 ==